=== PATIENT | female | born 1980 | race Caucasian/White ===

== ENCOUNTER 2017-05-24 10:05 | Emergency (ER) | payer OTHER, SELFPAY ==
[2017-05-24 10:06] VITALS: BP 126/79; PULSE 151; RESP 20; TEMP 36.4; O2SAT 98; BMI 64.0
--- NOTE | 2017-05-24 10:24 | HMH.EDNVD ---
ED Disposition Clinical Impression: Gastroenteritis Disposition: Home, Self-Care Condition on Discharge: Good Instructions: DI for Diarrhea and Traveler's Diarrhea -- Child, DI for Nausea -- Adult, DI for Nausea -- Child Additional Instructions: Aggressive fluid hydration, Zofran as needed, follow up with Dr. Schneider in one day for recheck, watch blood sugars closely, go to closest ER if not keeping down fluids. Prescriptions: Ondansetron [Zofran 4mg ODT] 4 mg PO Q8HP PRN #10 tab.rapdis PRN Reason: Nausea Referrals: Isaac Schneider MD [Primary Care Provider] - - Critical Care Critical Care Time: No Attestation: On , the high probability of a clinically significant, sudden or life threatening deterioration of the following system(s) required my full and direct attention, intervention and personal management. The time I documented below is in addition to time spent performing reported procedures but includes the following listed in this critical care notation. Medical Decision Making Vital Signs: 05/24/17 10:06 05/24/17 13:06 Temperature 97.6 F 99.8 F H Temperature Source Temporal Artery Scan Oral Pulse Rate [Right Brachial] 151 H 129 H Respiratory Rate 20 18 Blood Pressure [Right Arm] 126/79 113/62 Blood Pressure Mean [Right Arm] 94 79 Blood Pressure Source [Right Arm] Automatic Cuff Manual Cuff/ Doppler Blood Pressure Position [Right Arm] Sitting Supine 02 Sat by Pulse Oximetry 98 96 Oxygen Delivery Method Room Air Room Air - Lab Data Lab results reviewed: Yes: I reviewed the patient's lab results. Lab Results 05/24/17 10:23: Urine Color Yellow, Urine Appearance Clear, Urine pH 5.5, Ur Specific [place] 1.010, Urine Protein Negative, Urine Glucose (UA) 3+, Urine Ketones 1+, Urine Blood Negative, Urine Nitrate Negative, Urine Bilirubin 1+ A, Urine Urobilinogen 0.2, Ur Leukocyte Esterase Negative, Urine RBC Occasional, Urine WBC Occasional, Ur Squamous Epith Cells 3-5, Urine Bacteria Trace 05/24/17 10:23: Urine HCG, Qual Negative 05/24/17 : WBC 10.1, RBC 5.42 H, Hgb 16.9 H, Hct 49.9 H, MCV 92.1, MCH 31.2, MCHC 33.9, RDW 13.0, Plt Count 229, MPV 9.4, Neut % (Auto) 92.4 H, Lymph % (Auto) 1.7 L, [place] % (Auto) 4.8, Eos % (Auto) 0.8, Baso % (Auto) 0.4, Neut # (Auto) 9.4 H, Lymph # (Auto) 0.2 L, [place] # (Auto) 0.5, Eos # (Auto) 0.1, Baso # (Auto) 0.0, Total Counted 100, Neutrophils % (Manual) 86 H, Band Neutrophils % 6.0, Lymphocytes % (Manual) 3 L, Monocytes % (Manual) 5, Platelet Estimate Normal, RBC Morphology Normal 05/24/17 : Sodium 139, Potassium 4.5, Chloride 100, Carbon Dioxide 20 L, Anion Gap 23.5 H, BUN 20 H, Creatinine 1.01, Estimated Creat Clear 71, Estimated GFR 62, Est GFR ( Amer) 75, Glucose 250 H, Calcium 9.3, Total Bilirubin 1.2 H, AST 23, ALT 37, Alkaline Phosphatase 136 H, Total Protein 8.4 H, Albumin 4.6, Globulin 3.8 H, Albumin/Globulin Ratio 1.2 Result diagrams: 05/24/17 Unknown 05/24/17 Unknown Orders (Tests/Meds): ED MEDICATIONS Generic Name Dose Route Start Last Admin Trade Name Freq PRN Reason Stop Dose Admin Sodium Chloride 1,000 mls @ 999 mls/hr 05/24/17 13:00 05/24/17 12:56 Sod Chloride 0.9% 1000ml Bag IV 05/24/17 14:00 999 mls/hr .Q1H1M KAITLIN Administration Discontinued Medications Generic Name Dose Route Start Last Admin Trade Name Freq PRN Reason Stop Dose Admin Acetaminophen 1,000 mg 05/24/17 13:20 05/24/17 13:22 Tylenol 500mg Tablet PO 05/24/17 13:21 1,000 mg ONCE ONE Administration Sodium Chloride 1,000 mls @ 999 mls/hr 05/24/17 10:30 05/24/17 11:15 Sod Chloride 0.9% 1000ml Bag IV 05/24/17 11:30 999 mls/hr .Q1H1M KAITLIN Administration Ondansetron HCl 4 mg 05/24/17 10:21 05/24/17 11:15 Zofran 4mg/2ml Vial IV 05/24/17 10:22 4 mg ONCE ONE Administration - [place] Inquiry Pt receiving controlled substance: No Medical Decision Making Narrative: No further vomiting. I have called the lab regarding the CMP resu
[2017-05-24 10:28] LABS: Microscopic, Urine URINE MICROSCOPIC (MICROSCOPIC)
--- NOTE | 2017-05-24 10:29 | ED_ITS ---
ED Disposition Clinical Impression: Gastroenteritis Disposition: Home, Self-Care Condition on Discharge: Good Instructions: DI for Diarrhea and Traveler's Diarrhea -- Child, DI for Nausea - - Adult, DI for Nausea -- Child Additional Instructions: Aggressive fluid hydration, Zofran as needed, follow up with Dr. Schneider in one day for recheck, watch blood sugars closely, go to closest ER if not keeping down fluids. Prescriptions: Ondansetron [Zofran 4mg ODT] 4 mg PO Q8HP PRN #10 tab.rapdis PRN Reason: Nausea Referrals: Isaac Schneider MD [Primary Care Provider] - - Critical Care Critical Care Time: No Attestation: On , the high probability of a clinically significant, sudden or life threatening deterioration of the following system(s) required my full and direct attention, intervention and personal management. The time I documented below is in addition to time spent performing reported procedures but includes the following listed in this critical care notation. Medical Decision Making Vital Signs: 05/24/17 10:06 05/24/17 13:06 Temperature 97.6 F 99.8 F H Temperature Source Temporal Artery Scan Oral Pulse Rate [Right Brachial] 151 H 129 H Respiratory Rate 20 18 Blood Pressure [Right Arm] 126/79 113/62 Blood Pressure Mean [Right Arm] 94 79 Blood Pressure Source [Right Arm] Automatic Cuff Manual Cuff/ Doppler Blood Pressure Position [Right Arm] Sitting Supine 02 Sat by Pulse Oximetry 98 96 Oxygen Delivery Method Room Air Room Air - Lab Data Lab results reviewed: Yes: I reviewed the patient's lab results. Lab Results 05/24/17 10:23: Urine Color Yellow, Urine Appearance Clear, Urine pH 5.5, Ur Specific [place] 1.010, Urine Protein Negative, Urine Glucose (UA) 3+, Urine Ketones 1+, Urine Blood Negative, Urine Nitrate Negative, Urine Bilirubin 1+ A, Urine Urobilinogen 0.2, Ur Leukocyte Esterase Negative, Urine RBC Occasional, Urine WBC Occasional, Ur Squamous Epith Cells 3-5, Urine Bacteria Trace 05/24/17 10:23: Urine HCG, Qual Negative 05/24/17 : WBC 10.1, RBC 5.42 H, Hgb 16.9 H, Hct 49.9 H, MCV 92.1, MCH 31.2, MCHC 33.9, RDW 13.0, Plt Count 229, MPV 9.4, Neut % (Auto) 92.4 H, Lymph % (Auto ) 1.7 L, [place] % (Auto) 4.8, Eos % (Auto) 0.8, Baso % (Auto) 0.4, Neut # (Auto) 9.4 H, Lymph # (Auto) 0.2 L, [place] # (Auto) 0.5, Eos # (Auto) 0.1, Baso # (Auto) 0.0, Total Counted 100, Neutrophils % (Manual) 86 H, Band Neutrophils % 6.0, Lymphocytes % (Manual) 3 L, Monocytes % (Manual) 5, Platelet Estimate Normal, RBC Morphology Normal 05/24/17 : Sodium 139, Potassium 4.5, Chloride 100, Carbon Dioxide 20 L, Anion Gap 23.5 H, BUN 20 H, Creatinine 1.01, Estimated Creat Clear 71, Estimated GFR 62, Est GFR ( Amer) 75, Glucose 250 H, Calcium 9.3, Total Bilirubin 1.2 H , AST 23, ALT 37, Alkaline Phosphatase 136 H, Total Protein 8.4 H, Albumin 4.6, Globulin 3.8 H, Albumin/Globulin Ratio 1.2 Result diagrams: 05/24/17 Unknown 05/24/17 Unknown Orders (Tests/Meds): ED MEDICATIONS Generic Name Dose Route Start Last Admin Trade Name Freq PRN Reason Stop Dose Admin Sodium Chloride 1,000 mls @ 999 mls/hr 05/24/17 13:00 05/24/17 12:56 Sod Chloride 0.9% 1000ml Bag IV 05/24/17 14:00 999 mls/hr .Q1H1M KAITLIN Administration Discontinued Medications Generic Name Dose Route Start Last Admin Trade Name Freq PRN Reason Stop Dose Admin Acetaminophen 1,000 mg 05/24/17 13:20 05/24/17 13:22
[2017-05-24 10:31] LABS: Appearance,Urine CLEAR (Clear); Blood, Urine Negative (Negative); Color,Urine YELLOW (Yellow); Glucose,Urine (UA) 3+ (Negative); Ketones,Urine 1+ (Negative); Leukocyte Esterase,Urine Negative (Negative); Nitrate,Urine Negative (Negative); PH,Urine 5.5 (5.0-8.5); Protein,Urine Negative (Negative); Urobilinogen,Urine 0.2 EU/dl (0.2)
[2017-05-24 10:34] LABS: Urine Pregnancy, HCG Qual. Negative (Negative)
[2017-05-24 10:36] LABS: Bilirubin,Urine 1+ (Negative)
[2017-05-24 10:43] LABS: RBC,Urine Occasional #/hpf (0-3); WBC,Urine Occasional #/hpf (0-3)
[2017-05-24 10:44] LABS: Bacteria,Urine Trace /lpf
[2017-05-24 11:56] LABS: Basophils % 0.4 % (0.1-2.0); Eosinophils # 0.1 K/mm3 (0.0-0.4); Eosinophils % 0.8 % (0.1-12.0); Hematocrit 49.9 % (37.0-47.0); Hemoglobin 16.9 g/dL (12.2-16.2); Lymphocytes # 0.2 K/mm3 (0.7-4.5); Lymphocytes % 1.7 K/mm3 (10-50); Mean Corpuscular HGB Conc 33.9 g/dL (31.8-35.4); Mean Corpuscular Hemoglobin 31.2 pg (27.0-31.2); Mean Corpuscular Volume 92.1 fl (81-99); Mean Platelet Volume 9.4 fl (7.4-10.4); Monocytes # 0.5 K/mm3 (0.1-1.0); Monocytes % 4.8 % (1.7-9.3); Neutrophils # 9.4 K/mm3 (1.8-7.8); Neutrophils % 92.4 % (37.0-80.0); Platelet Count 229 K/mm3 (142-424); Red Blood Count 5.42 M/mm3 (4.20-5.40); White Blood Count 10.1 K/mm3 (4.8-10.8)
[2017-05-24 11:58] LABS: MANUAL DIFFERENTIAL MANUAL DIFFERENTIAL (MANUAL DIFF)
[2017-05-24 12:48] LABS: Lymphocytes % 3 % (10-50); Monocytes % 5 % (2-9); Neutrophils % 86 % (42-76); Total Cells Counted 100
[2017-05-24 12:51] LABS: Platelet Estimate Normal; RBC Morphology Normal
[2017-05-24 13:06] VITALS: BP 113/62; PULSE 129; RESP 18; TEMP 37.7; O2SAT 96
[2017-05-24 13:18] LABS: Alanine Aminotransferase 37 U/L (12-78); Albumin Level 4.6 gm/dL (3.4-5.0); Albumin/Globulin Ratio 1.2 (1.1-1.8); Alkaline Phosphatase 136 U/L (46-116); Anion Gap 23.5 mEq/L (5-15); Aspartate Amino Transferase 23 U/L (15-37); Bilirubin,Total 1.2 mg/dL (0.2-1.0); Blood Urea Nitrogen 20 mg/dL (7-18); Calcium 9.3 mg/dL (8.5-10.1); Carbon Dioxide 20 mmol/L (21.0-32.0); Chloride 100 mmol/L (98-107); Creatinine Clearance Estimated 71 mL/min (0-300); Creatinine,Serum 1.01 mg/dL (0.55-1.02); Estimated Glomerular Filt Rate 62 ml/min (>60); GFR (African American) 75 ML/MIN (>60); Globulin 3.8 gm/dl (1.3-3.2); Glucose 250 mg/dL (74-106); Potassium 4.5 mmoL/L (3.5-5.1); Sodium 139 mmol/L (136-145); Total Protein,Serum 8.4 gm/dL (6.4-8.2)
[2017-05-24 14:19] VITALS: BP 120/62; PULSE 115; RESP 18; TEMP 37.3; O2SAT 96
== END 2017-05-24 14:19 | disposition home or self-care (01) ==
PROVIDERS: Emergency Provider Emergency Medicine; PCP Family Medicine
DX: K52.9 Noninfective gastroenteritis and colitis, unspecified (principal); E11.65 Type 2 diabetes mellitus with hyperglycemia; Z79.84 Long term (current) use of oral hypoglycemic drugs; Z87.891 Personal history of nicotine dependence
CPT/HCPCS: 80053; 81001; 81025; 85007; 85025; 96365; 96366; 96374; 96375; 99283; J2405

== ENCOUNTER → 2017-10-11 12:04 | Outpatient (CLI) | payer OTHER, SELFPAY ==
--- NOTE | 2017-10-11 12:09 | XR_ITS ---
XR finger LT min 2V CLINICAL INDICATION: ITS.REASON: LEFT THUMB PAIN ORDERING PHYSICIAN: RITO Sauceda PATIENT AGE: 36 years Comparison: None FINDINGS: There is a small calcific density at the major aspect of the interphalangeal joint of the thumb and could be due to an accessory center of ossification or an old avulsion injury. Joint spaces are well-preserved. No acute fracture evident. IMPRESSION: Old avulsion fracture versus accessory center of ossification at the interphalangeal joint anteriorly otherwise negative
== END ==
PROVIDERS: PCP Family Medicine; Visit Provider Physician Assistant
DX: M79.645 Pain in left finger(s) (principal)
CPT/HCPCS: 73140

== ENCOUNTER → 2018-04-10 08:07 | Outpatient (POV) | payer OTHER, SELFPAY | PROVIDERS: Visit Provider Dermatology | DX: Z00.00 Encounter for general adult medical examination without abnormal findings (principal) ==

== ENCOUNTER → 2020-01-03 10:17 | Outpatient (CLI) | payer OTHER, SELFPAY ==
--- NOTE | 2020-01-03 10:22 | MM_ITS ---
PROCEDURE: MM DIG SCREENING MAMM BI W/CAD Digital Breast Tomosynthesis Included CLINICAL INDICATION: SCREENING There is no personal or family history of breast cancer. There has been a previous biopsy left breast for benign disease. COMPARISON: MG DMSB DIGITAL MAMM-SCREEN BILATERAL from 12/21/2011 TECHNIQUE: Standard CC and MLO images and 3D Tomosynthesis was obtained. R2 CAD reviewed. FINDINGS: Moderate diffuse fibroglandular densities are seen in both breasts. There is a stable small nodular density upper inner quadrant left breast with a biopsy clip abutting its border in this likely is small fibroadenoma which has been biopsied previously. There is no new or suspicious lesion in either breast and no suspicious microcalcifications. IMPRESSION: Moderate breast density with no suspicious lesions seen BI-RAD Category: 2 Benign Finding(s) FOLLOW-UP: 1YR 1 Year Follow-up (A letter has been sent to the patient regarding results of the study.) Dictated by: Dr. Yusef Harris MD 01/03/2020 17:33 Dr. Yusef Harris MD in [place] 01/03/2020 17:33
== END ==
PROVIDERS: PCP Family Medicine; Visit Provider Family Medicine
DX: Z12.31 Encounter for screening mammogram for malignant neoplasm of breast (principal)
CPT/HCPCS: 77063; 77067

== ENCOUNTER → 2020-04-21 11:10 | Outpatient (CLI) | payer OTHER, SELFPAY ==
--- NOTE | 2020-04-21 | XR_ITS ---
PROCEDURE: XR CHEST 2V CLINICAL HISTORY: COUGH COMPARISON: No exams were available for comparison FINDINGS: The cardiomediastinal silhouette and pulmonary vascularity are within normal limits. The lungs are clear without infiltrates, suspicious nodules, or pleural effusions. No acute bony abnormalities. IMPRESSION: No acute findings. Dictated by: Teo Billings MD 04/21/2020 17:17 Teo Billings MD in [place] 04/21/2020 17:17
== END ==
PROVIDERS: PCP Family Medicine; Visit Provider Family Medicine
DX: R05 Cough (principal)
CPT/HCPCS: 71046

== ENCOUNTER → 2020-04-24 11:50 | Outpatient (CLI) | payer OTHER, SELFPAY | PROVIDERS: PCP Family Medicine; Visit Provider Family Medicine | DX: R05 Cough (principal) | CPT/HCPCS: 94060 ==

== ENCOUNTER → 2020-11-18 08:12 | Outpatient (CLI) | payer BC, SELFPAY ==
--- NOTE | 2020-11-18 08:24 | US_ITS ---
PROCEDURE: US ABDOMEN LIMITED CLINICAL INDICATION: RUQ PAIN,NAUSEA COMPARISON: No exams were available for comparison FINDINGS: PANCREAS: Pancreas is not well delineated due to overlying bowel gas. CT or MRI without and with contrast with pancreatic protocol may provide further evaluation if clinically desired.. LIVER: Diffuse increased echogenicity of the liver with poor through transmission of sound consistent with hepatic steatosis. No focal liver lesion demonstrated. There is appropriate direction of blood flow within non dilated portal vein. RIGHT KIDNEY: Unremarkable. Normal size and echogenicity. No hydronephrosis GALLBLADDER: No gallstones, gallbladder wall thickening, pericholecystic fluid, or biliary dilatation. IMPRESSION: Fatty liver. No gallstones apparent. Pancreas poorly demonstrated Dictated by: Teo Billings MD 11/18/2020 11:32 Teo Billings MD in [place] 11/18/2020 11:32
== END ==
PROVIDERS: PCP Family Medicine; Visit Provider Family Medicine
DX: R10.11 Right upper quadrant pain (principal)
CPT/HCPCS: 76705

== ENCOUNTER → 2020-11-23 10:13 | Outpatient (CLI) | payer BC, SELFPAY ==
--- NOTE | 2020-11-23 10:20 | NM_ITS ---
PROCEDURE: NM HEPATOBILIARY W PHARM CLINICAL INDICATION: RUQ ABD PAIN COMPARISON: US US ABDOMEN LIMITED from 11/18/2020 TECHNIQUE: DOSE: 7.7 mCi technetium Choletec. Fatty meal/ensure given for gallbladder EF FINDINGS: Homogeneous activity is present within the hepatic parenchyma. Activity is present in the gallbladder by 10 minutes. Activity is present in the small bowel by 5 minutes. No reflux of activity within the stomach. The gallbladder ejection fraction is calculated to be 86 percent. CCK-The patient did not report pain or other symptoms fatty meal ingestion. IMPRESSION: Unremarkable hepatobiliary scan. No evidence of common or cystic duct obstruction with normal gallbladder ejection fraction Dictated by: Teo Billings MD 11/23/2020 14:12 Teo Billings MD in [place] 11/23/2020 14:12
--- NOTE | 2020-11-23 11:04 | HMH.ITSHM ---
Current Home Medications as stated by this patient Linda Farias or patient care representative. []ONDANSETRON INSULIN
== END ==
PROVIDERS: PCP Family Medicine; Visit Provider Family Medicine
DX: R10.11 Right upper quadrant pain (principal)
CPT/HCPCS: 78227; A9537

== ENCOUNTER → 2021-02-15 17:49 | Outpatient (CLI) | payer BC, SELFPAY ==
[2021-02-15 19:16] LABS: Microalbumin/Creatinine Ratio 34.6
[2021-02-15 19:17] LABS: Creatinine,Urine Random 52 mg/dL (Not Estab.)
[2021-02-15 19:22] LABS: Alanine Aminotransferase 36 U/L (12-78); Albumin/Globulin Ratio 1.2 (1.1-1.8); Alkaline Phosphatase 169 U/L (38-126); Anion Gap 13.5 mEq/L (5-15); Aspartate Amino Transferase 39 U/L (14-36); Bilirubin,Total 0.5 mg/dl (0.2-1.3); Blood Urea Nitrogen 8 mg/dl (7-17); Calcium 9.3 mg/dl (8.4-10.2); Carbon Dioxide 25 mmol/L (22.0-30.0); Chloride 101 mmol/L (98-107); Cholesterol 257 mg/dl (140-200); Estimated Glomerular Filt Rate 176 ml/min (>60); GFR (African American) 213 ML/MIN (>60); Globulin 3.3 g/dL (1.3-3.2); Glucose 355 mg/dl (74-100); HDL Cholesterol 32 mg/dl (40-60); Potassium 4.5 mmoL/L (3.5-5.1); Sodium 135 mmol/L (136-145); Total Protein,Serum 7.3 g/dl (6.3-8.2)
[2021-02-15 19:32] LABS: Direct LDL Cholesterol 83.16 mg/dL (100-129)
[2021-02-15 19:36] LABS: Basophils # 0.1 K/mm3 (0-0.2); Basophils % 0.8 % (0.1-2.0); Eosinophils # 0.3 K/mm3 (0.0-0.4); Eosinophils % 2.7 % (0.1-12.0); Hematocrit 46.1 % (37.0-47.0); Hemoglobin 15.5 g/dL (12.2-16.2); Lymphocytes # 2.5 K/mm3 (0.7-4.5); Mean Corpuscular HGB Conc 33.7 g/dL (31.8-35.4); Mean Corpuscular Hemoglobin 32.4 pg (27.0-31.2); Mean Corpuscular Volume 96.2 fl (81-99); Mean Platelet Volume 10.5 fl (7.4-10.4); Monocytes # 0.6 K/mm3 (0.1-1.0); Neutrophils # 8.7 K/mm3 (1.8-7.8); Neutrophils % 71.4 % (37.0-80.0); Platelet Count 239 K/mm3 (142-424); Red Blood Count 4.79 M/mm3 (4.20-5.40); Red Cell Distribution Width 13.5 % (11.5-17.5); Triglycerides 1257 mg/dl (30-150); White Blood Count 12.2 K/mm3 (4.8-10.8)
[2021-02-15 19:40] LABS: T4 (Thyroxine) 7.6 ug/dl (5.53-11.0)
== END ==
PROVIDERS: Visit Provider Nurse Practitioner Family
DX: E11.9 Type 2 diabetes mellitus without complications (principal); Z79.4 Long term (current) use of insulin
CPT/HCPCS: 80053; 80061; 82043; 82570; 83036; 84436; 84443; 85025

== ENCOUNTER → 2021-03-10 13:33 | Outpatient (CLI) | payer BC, SELFPAY ==
[2021-03-12 11:27] LABS: C-Peptide 4.4 ng/mL (1.1-4.4)
== END ==
PROVIDERS: Visit Provider Nurse Practitioner Family
DX: E11.9 Type 2 diabetes mellitus without complications (principal); Z79.4 Long term (current) use of insulin
CPT/HCPCS: 84681

== ENCOUNTER → 2021-04-13 07:58 | Outpatient (POV) | payer BC, SELFPAY | PROVIDERS: Visit Provider Dermatology | DX: Z00.00 Encounter for general adult medical examination without abnormal findings (principal) ==

== ENCOUNTER → 2021-06-24 11:34 | Outpatient (CLI) | payer BC, SELFPAY ==
[2021-06-24 11:56] LABS: Microscopic, Urine URINE MICROSCOPIC (MICROSCOPIC)
[2021-06-24 13:00] LABS: Basophils # 0.1 K/mm3 (0-0.2); Basophils % 0.8 % (0.1-2.0); Eosinophils # 0.2 K/mm3 (0.0-0.4); Eosinophils % 1.7 % (0.1-12.0); Hematocrit 44.1 % (37.0-47.0); Hemoglobin 15.3 g/dL (12.2-16.2); Lymphocytes % 22.4 % (10-50); Mean Corpuscular HGB Conc 34.7 g/dL (31.8-35.4); Mean Platelet Volume 10.1 fl (7.4-10.4); Monocytes # 0.7 K/mm3 (0.1-1.0); Monocytes % 4.9 % (1.7-9.3); Neutrophils # 9.5 K/mm3 (1.8-7.8); Neutrophils % 70.1 % (37.0-80.0); Platelet Count 269 K/mm3 (142-424); Red Blood Count 4.79 M/mm3 (4.20-5.40); Red Cell Distribution Width 13.5 % (11.5-17.5); White Blood Count 13.5 K/mm3 (4.8-10.8)
[2021-06-24 13:52] LABS: 25-OH Vitamin D, Total 46.3 ng/mL (30-100)
[2021-06-24 14:20] LABS: Appearance,Urine CLEAR (Clear); Bilirubin,Urine Negative (Negative); Blood, Urine Negative (Negative); Color,Urine YELLOW (Yellow); Glucose,Urine (UA) Negative (Negative); Ketones,Urine Negative (Negative); Leukocyte Esterase,Urine Negative (Negative); Nitrate,Urine Negative (Negative); PH,Urine 5.5 (5.0-8.5); Protein,Urine Negative (Negative); Specific Gravity, Urine >= 1.030 (1.005-1.030); Urobilinogen,Urine 0.2 EU/dl (0.2)
[2021-06-24 14:43] LABS: Total Protein,Urine Random < 5.0 mg/dL (0.0-12.0)
[2021-06-24 14:45] LABS: Creatinine,Urine Random 164 mg/dL (Not Estab.)
[2021-06-24 14:51] LABS: Microalbumin/Creatinine Ratio 28.4
[2021-06-24 15:00] LABS: Bacteria,Urine Trace /lpf; WBC,Urine Occasional #/hpf (0-3); Yeast,Urine Occasional /lpf
[2021-06-24 16:08] LABS: Albumin Level 5.5 g/dl (3.5-5.0); Anion Gap 14.5 mEq/L (5-15); Blood Urea Nitrogen 14 mg/dl (7-17); Calcium 10.2 mg/dl (8.4-10.2); Carbon Dioxide 27 mmol/L (22.0-30.0); Chloride 100 mmol/L (98-107); Estimated Glomerular Filt Rate 136 ml/min (>60); GFR (African American) 165 ML/MIN (>60); Glucose 165 mg/dl (74-100); Phosphorous 4.7 mg/dl (2.5-4.5); Potassium 4.5 mmoL/L (3.5-5.1); Sodium 137 mmol/L (136-145)
[2021-06-24 16:19] LABS: Intact Parathyroid Hormone 12.4 pg/mL (7.5-53.5)
== END ==
PROVIDERS: PCP Nurse Practitioner Family; Visit Provider Internal Medicine Nephrology
DX: R80.9 Proteinuria, unspecified (principal); E55.9 Vitamin D deficiency, unspecified
CPT/HCPCS: 36415; 80069; 81001; 82043; 82306; 82570; 83970; 84155; 85025

== ENCOUNTER → 2021-06-28 13:32 | Outpatient (POV) | payer BC, SELFPAY | PROVIDERS: Visit Provider Internal Medicine Nephrology | DX: Z00.00 Encounter for general adult medical examination without abnormal findings (principal) ==

== ENCOUNTER 2021-09-06 10:42 | Emergency (ER) | payer BC, SELFPAY ==
[2021-09-06 10:42] VITALS: BP 122/84; PULSE 80; RESP 19; TEMP 36.9; O2SAT 99; BMI 28.1
[2021-09-06 11:33] LABS: UTC Influenza A Antigen Negative (Negative)
[2021-09-06 11:34] LABS: UTC Influenza B Antigen Negative (Negative)
--- NOTE | 2021-09-06 12:03 | HMH.EDUTC ---
[place] Disposition Clinical Impression: URI (upper respiratory infection) Qualifiers: URI type: unspecified URI Qualified Code(s): J06.9 - Acute upper respiratory infection, unspecified Disposition: Home, Self-Care Condition on Discharge: Good Instructions: Sore Throat, Sinusitis Additional Instructions: *Monitor Temp, Over the counter Motrin or Tylenol as directed/as needed Tylenol every 4 hours and Motrin every 6 hours (as long as your family doctor has told you that you can take it) for fever or pain. and straight to ER if unable to lower temp less than 101.0 after medication given *Warm salt water gargles may help to soothe the throat *Throat Lozenges *Warm fluids like tea with honey may help to soothe the throat *Sleep elevated *Humidifier/Vaporizer *Flonase 2 sprays in each nostril daily but be aware that it may take 2-3 days before you notice improvement Your throat swab was sent for culture. Those results are typically sent to your primary care. Be sure to follow up in 2-3 days with your family doctor/primary care physician if no improvement so they can review those result and treat if necessary. If you don?t have a primary care doctor, I recommend you get one but in the mean time, you will have to return to a walk in clinic Follow up IMMEDIATELY for new or worsening symptoms or no Noticeable improvement over the next 48-72 hours. 911 for difficulty breathing or swallowing Prescriptions: Fluticasone Propionate [Flonase 50mcg nasal spray 16gm] 1 spr NS DAILY #1 each Transmission Status: Sent to [facility] Azithromycin [Z-Marquis 250mg Tab] 250 mg PO DIRECTED #6 tab Transmission Status: Pending to [facility] Referrals: Cory Whelan APRN [Primary Care Provider] - As needed Time of Disposition: 12:12 Medical Decision Making - [place] Inquiry Pt receiving controlled substance: No [place] was queried for this patient: No Vital Signs: 09/06/21 10:42 Temperature 98.5 F Temperature Source Oral Pulse Rate [Right Radial] 80 Respiratory Rate 19 Blood Pressure [Right Arm] 122/84 Blood Pressure Mean [Right Arm] 96 Blood Pressure Source [Right Arm] Automatic Cuff Blood Pressure Position [Right Arm] Sitting 02 Sat by Pulse Oximetry 99 Oxygen Delivery Method Room Air - Lab Data Lab results reviewed: Yes: I reviewed the patient's lab results. Lab Results 09/06/21 11:25: Influenza Type A Ag Negative, Influenza Type B Ag Negative [place] HPI - General Stated complaint: sore throat, h/a, congestion Time Seen by Provider: 09/06/21 12:03 Mode of Arrival: Ambulatory Source of Information: Patient Limitations: No Limitations Description of Symptoms (Recalled from Triage Doc. by RN): Pt stated that since yesterday she has had body aches, sinus pressure, cough, and chills. HEENT Symptoms (Recalled from RN notes): Yes Resp Symptoms (Recalled from RN notes): No Skin Symptoms (Recalled from RN notes): No MS Symptoms (Recalled from RN notes): No Functional Status (Recalled from RN notes): n/a - History of Present Illness Provider Complaint: Patient states that she has been having sinus pressure, sore scratchy throat cough and chest congestion for about a week but States that she has continued to feel worse over the last couple days and symptoms worsened yesterday so today when she was still not feeling well she came in to get checked out - Related Data Home Medications Medication Instructions Recorded Confirmed insulin glargine U-300 conc 300 120 unit SQ DAILY ml 04/14/21 05/12/21 unit/mL (3 mL) subcutaneous pen Previous Rx's Medication Instructions Recorded flash glucose scanning reader See Rx Instructions .ROUTE #1 each 03/10/21 aspirin 81 mg tablet,delayed 81 mg PO DAILY #30 tab 04/14/21 release duloxetine 60 mg capsule,delayed 60 mg PO DAILY #90 cap 04/14/21 release lisinopril 5 mg tablet 5 mg PO DAILY #30 tab 04/14/21 semaglutide 0.25 mg SQ WEEKLY #1.5 ml 05/12/21
[2021-09-06 12:27] VITALS: BP 122/84; PULSE 80; RESP 19; TEMP 36.9; O2SAT 99
== END 2021-09-06 12:27 | disposition home or self-care (01) ==
PROVIDERS: Emergency Provider Nurse Practitioner; PCP Nurse Practitioner Family
DX: J06.9 Acute upper respiratory infection, unspecified (principal); E11.9 Type 2 diabetes mellitus without complications; Z87.891 Personal history of nicotine dependence
CPT/HCPCS: 87804; 99212; G0463

== ENCOUNTER → 2022-03-17 11:21 | Outpatient (CLI) | payer BC, SELFPAY ==
[2022-03-17 14:52] LABS: Basophils # 0.1 K/mm3 (0-0.2); Basophils % 1.1 % (0.1-2.0); Eosinophils # 0.2 K/mm3 (0.0-0.4); Eosinophils % 1.9 % (0.1-12.0); Hematocrit 47.9 % (37.0-47.0); Hemoglobin 16.2 g/dL (12.2-16.2); Lymphocytes # 2.4 K/mm3 (0.7-4.5); Lymphocytes % 19.6 % (10-50); Mean Corpuscular HGB Conc 33.8 g/dL (31.8-35.4); Mean Corpuscular Hemoglobin 32.1 pg (27.0-31.2); Mean Platelet Volume 10.3 fl (7.4-10.4); Monocytes # 0.6 K/mm3 (0.1-1.0); Monocytes % 4.7 % (1.7-9.3); Neutrophils # 8.7 K/mm3 (1.8-7.8); Neutrophils % 72.7 % (37.0-80.0); Platelet Count 249 K/mm3 (142-424); Red Blood Count 5.04 M/mm3 (4.20-5.40); Red Cell Distribution Width 13.5 % (11.5-17.5)
[2022-03-17 14:56] LABS: Microalbumin/Creatinine Ratio 44.7
[2022-03-17 14:58] LABS: Creatinine,Urine Random 34 mg/dL (Not Estab.)
[2022-03-17 15:19] LABS: Hemoglobin A1C 13.2 % (4.0-6.0)
[2022-03-17 16:08] LABS: Chloride 90 mmol/L (98-107); Potassium 5.1 mmoL/L (3.5-5.1); Sodium 133 mmol/L (136-145)
[2022-03-17 16:09] LABS: Alanine Aminotransferase 26 U/L (12-78); Albumin Level 4.9 g/dl (3.5-5.0); Albumin/Globulin Ratio 1.7 (1.1-1.8); Alkaline Phosphatase 186 U/L (38-126); Anion Gap 22.1 mEq/L (5-15); Aspartate Amino Transferase 28 U/L (14-36); Bilirubin,Total 0.6 mg/dl (0.2-1.3); Blood Urea Nitrogen 10 mg/dl (7-17); Calcium 10.2 mg/dl (8.4-10.2); Carbon Dioxide 26 mmol/L (22.0-30.0); Chol/HDL Ratio 7.4 (1-3.5); Cholesterol 287 mg/dl (140-200); Estimated Glomerular Filt Rate 175 ml/min (>60); GFR (African American) 212 ML/MIN (>60); Globulin 2.9 g/dL (1.3-3.2); Glucose 371 mg/dl (74-100); HDL Cholesterol 39 mg/dl (40-60); Total Protein,Serum 7.8 g/dl (6.3-8.2)
[2022-03-17 16:25] LABS: 25-OH Vitamin D, Total 37.5 ng/mL (30-100)
[2022-03-17 16:26] LABS: Direct LDL Cholesterol 91.43 mg/dL (100-129)
[2022-03-17 16:30] LABS: Triglycerides 756 mg/dl (30-150)
[2022-03-17 16:40] LABS: Thyroid Stimulating Hormone 0.52 uIU/mL (0.465-4.68)
== END ==
PROVIDERS: PCP Physician Assistant; Visit Provider Physician Assistant
DX: E11.9 Type 2 diabetes mellitus without complications (principal); Z79.4 Long term (current) use of insulin
CPT/HCPCS: 80053; 80061; 82043; 82306; 82570; 83036; 84443; 85025

== ENCOUNTER → 2022-05-12 14:38 | Outpatient (CLI) | payer BC, SELFPAY ==
[2022-05-12 16:00] VITALS: BMI 28.3
== END ==
PROVIDERS: PCP Physician Assistant; Visit Provider Physician Assistant
DX: Z71.3 Dietary counseling and surveillance (principal); E11.9 Type 2 diabetes mellitus without complications
CPT/HCPCS: 97802

== ENCOUNTER → 2022-05-25 10:58 | Outpatient (CLI) | payer BC, SELFPAY ==
--- NOTE | 2022-05-25 10:58 | MM_ITS ---
PROCEDURE INFORMATION: Exam: MG Bilateral Screening 3D Mammography Exam date and time: 05/25/2022 10:52 AM Age: 41 years old Clinical indication: Screening. History of benign left needle biopsy. TECHNIQUE: Imaging protocol: Bilateral Screening tomosynthesis and 2D mammography including computer-aided detection (CAD) when performed. COMPARISON: 1. MG MM DIG SCREENING MAMM BI W/CAD 01/03/2020 10:23 AM 2. MG DMSB DIGITAL MAMM-SCREEN BILATERAL 12/21/2011 2:55 PM FINDINGS: MAMMOGRAPHY: Breast composition: The breasts are heterogeneously dense, which may obscure small masses. Mass: Stable sub cm mass in the inner left breast with related biopsy clip. Architectural distortion: None. Calcifications: Possible grouping of calcifications in the left upper outer quadrant posterior 3rd. Asymmetric density: No developing asymmetry. Skin thickening: None. Axillary adenopathy: None. IMPRESSION: Patient to be recalled for left diagnostic magnification views in XCCL and true lateral for further evaluation of possible left breast calcifications. ASSESSMENT: BI-RADS Category 0: Incomplete- Need Additional Imaging Evaluation and/or Prior Mammograms for Comparison
--- NOTE | 2022-05-25 14:27 | XR_ITS ---
FINAL REPORT CLINICAL HISTORY: b/l foot pain FINDINGS: LEFT FOOT Three weight-bearing views of the left foot demonstrate no acute fracture or dislocation. The joint spaces are preserved. The soft tissues are unremarkable. IMPRESSION: No acute bony abnormality. Reviewed, Interpreted and Dictated by Hood Handy III, MD Transcribed by Shea Barr Authenticated and . [facility]
--- NOTE | 2022-05-25 14:27 | XR_ITS ---
FINAL REPORT CLINICAL HISTORY: b/l foot pain FINDINGS: RIGHT FOOT Three weight-bearing views of the right foot demonstrate no acute fracture or dislocation. There are mild degenerative changes of the 1st MTP joint. The soft tissues are unremarkable. IMPRESSION: No acute bony abnormality. Reviewed, Interpreted and Dictated by Hood Handy III, MD Transcribed by Shea Barr Authenticated and . [facility]
== END ==
PROVIDERS: PCP Physician Assistant; Referring Provider Nurse Practitioner Family; Visit Provider Physician Assistant
DX: Z12.31 Encounter for screening mammogram for malignant neoplasm of breast (principal); M79.671 Pain in right foot; M79.672 Pain in left foot
CPT/HCPCS: 73630; 77063; 77067

== ENCOUNTER → 2022-06-03 14:27 | Outpatient (CLI) | payer BC, SELFPAY ==
--- NOTE | 2022-06-03 14:31 | MM_ITS ---
PROCEDURE INFORMATION: Exam: MG Left Diagnostic Breast Tomosynthesis Exam date and time: 06/03/2022 2:42 PM Age: 41 years old Clinical indication: Patient recalled on the basis of a screening mammogram for further evaluation; Left breast; calcifications TECHNIQUE: Imaging protocol: Left Diagnostic tomosynthesis and 2D mammography including computer-aided detection (CAD) when performed. Unilateral or bilateral exam. COMPARISON: 1. MG MM DIG SCREENING MAMM BI W/CAD 05/25/2022 10:52 AM 2. MG MM DIG SCREENING MAMM BI W/CAD 01/03/2020 10:23 AM FINDINGS: MAMMOGRAPHY: Digital diagnostic magnification views of the posterior left upper outer quadrant demonstrate few punctate calcifications without tight clustering or significant pleomorphism IMPRESSION: No mammographic evidence of malignancy. Annual bilateral mammographic screening is recommended unless otherwise clinically indicated. ASSESSMENT: BI-RADS Category 2: Benign
== END ==
PROVIDERS: PCP Physician Assistant; Visit Provider Physician Assistant
DX: R92.8 Other abnormal and inconclusive findings on diagnostic imaging of breast (principal)
CPT/HCPCS: 77061; 77065; G0279

== ENCOUNTER → 2022-08-09 11:35 | Outpatient (CLI) | payer BC, SELFPAY ==
[2022-08-09 14:23] LABS: Hemoglobin A1C 7.2 % (4.0-6.0)
== END ==
PROVIDERS: PCP Nurse Practitioner Family; Visit Provider Nurse Practitioner Family
DX: E11.9 Type 2 diabetes mellitus without complications (principal); Z79.4 Long term (current) use of insulin
CPT/HCPCS: 83036

== ENCOUNTER → 2023-04-03 16:08 | Outpatient (CLI) | payer BC, SELFPAY ==
[2023-04-03 16:10] LABS: Basophils # 0.1 K/mm3 (0-0.2); Basophils % 0.5 % (0.1-2.0); Eosinophils # 0.2 K/mm3 (0.0-0.4); Eosinophils % 1.8 % (0.1-12.0); Hematocrit 41.9 % (37.0-47.0); Hemoglobin 14.6 g/dL (12.2-16.2); Lymphocytes # 2.4 K/mm3 (0.7-4.5); Lymphocytes % 22.7 % (10-50); Mean Corpuscular HGB Conc 34.8 g/dL (31.8-35.4); Mean Corpuscular Hemoglobin 31.9 pg (27.0-31.2); Mean Corpuscular Volume 91.6 fl (81-99); Mean Platelet Volume 10.9 fl (7.4-10.4); Monocytes # 0.5 K/mm3 (0.1-1.0); Monocytes % 4.8 % (1.7-9.3); Neutrophils # 7.4 K/mm3 (1.8-7.8); Neutrophils % 70.1 % (37.0-80.0); Platelet Count 248 K/mm3 (142-424); Red Blood Count 4.57 M/mm3 (4.20-5.40); Red Cell Distribution Width 13.6 % (11.5-17.5); White Blood Count 10.5 K/mm3 (4.8-10.8)
[2023-04-03 16:44] LABS: Alanine Aminotransferase 87 U/L (12-78); Albumin Level 4.5 g/dl (3.5-5.0); Albumin/Globulin Ratio 1.4 (1.1-1.8); Alkaline Phosphatase 160 U/L (38-126); Anion Gap 16.6 mEq/L (5-15); Aspartate Amino Transferase 64 U/L (14-36); Bilirubin,Total 0.5 mg/dl (0.2-1.3); Blood Urea Nitrogen 14 mg/dl (7-17); Calcium 9.5 mg/dl (8.4-10.2); Carbon Dioxide 25 mmol/L (22.0-30.0); Chloride 100 mmol/L (98-107); Chol/HDL Ratio 7.4 (1-3.5); Cholesterol 237 mg/dl (140-200); Estimated Glomerular Filt Rate 109 ml/min (>60); GFR (African American) 132 ML/MIN (>60); Globulin 3.3 g/dL (1.3-3.2); Glucose 171 mg/dl (74-100); HDL Cholesterol 32 mg/dl (40-60); Potassium 4.6 mmoL/L (3.5-5.1); Sodium 137 mmol/L (136-145); Total Protein,Serum 7.8 g/dl (6.3-8.2)
[2023-04-03 16:55] LABS: Direct LDL Cholesterol 76.27 mg/dL (100-129)
[2023-04-03 16:57] LABS: 25-OH Vitamin D, Total 20.1 ng/mL (30-100)
[2023-04-03 17:04] LABS: Triglycerides 686 mg/dl (30-150)
[2023-04-03 17:15] LABS: Thyroid Stimulating Hormone 0.61 uIU/mL (0.465-4.68)
[2023-04-03 17:33] LABS: Microalbumin/Creatinine Ratio 6.4
[2023-04-03 17:34] LABS: Vitamin B12 323 pg/mL (239-931)
[2023-04-03 17:36] LABS: Creatinine,Urine Random 151 mg/dL (Not Estab.)
[2023-04-05 08:18] LABS: FSH 33.7 mIU/mL (.); LH 38.4 mIU/mL (.); Testosterone,Total 34 ng/dL (4-50)
[2023-04-05 09:29] LABS: Progesterone <0.1 ng/mL (.)
[2023-04-05 12:14] LABS: Estradiol 37.3 pg/mL (.)
[2023-04-07 18:22] LABS: Estrogen 63 pg/mL (.)
[2023-04-10 21:50] LABS: Anti Mullerian Hormone (AMH) 0.022
== END ==
PROVIDERS: PCP Physician Assistant; Visit Provider Physician Assistant
DX: E11.9 Type 2 diabetes mellitus without complications (principal); E55.9 Vitamin D deficiency, unspecified; Z79.84 Long term (current) use of oral hypoglycemic drugs; Z79.85 Long-term (current) use of injectable non-insulin antidiabetic drugs; Z68.30 Body mass index [BMI] 30.0-30.9, adult
CPT/HCPCS: 80053; 80061; 82043; 82306; 82397; 82570; 82607; 82670; 82672; 83001; 83002; 83036; 84144; 84403; 84443; 85025

== ENCOUNTER 2023-08-30 16:05 | Outpatient (CLI) | payer BC, SELFPAY ==
[2023-08-30 18:17] LABS: Basophils # 0.1 K/mm3 (0-0.2); Basophils % 0.5 % (0.1-2.0); Eosinophils # 0.2 K/mm3 (0.0-0.4); Eosinophils % 1.3 % (0.1-12.0); Hematocrit 37.6 % (37.0-47.0); Hemoglobin 12.4 g/dL (12.2-16.2); Lymphocytes # 2.3 K/mm3 (0.7-4.5); Lymphocytes % 19.8 % (10-50); Mean Corpuscular Hemoglobin 31.3 pg (27.0-31.2); Mean Corpuscular Volume 94.8 fl (81-99); Mean Platelet Volume 10.1 fl (7.4-10.4); Monocytes # 0.6 K/mm3 (0.1-1.0); Monocytes % 4.8 % (1.7-9.3); Neutrophils # 8.4 K/mm3 (1.8-7.8); Neutrophils % 73.5 % (37.0-80.0); Platelet Count 254 K/mm3 (142-424); Red Blood Count 3.96 M/mm3 (4.20-5.40); Red Cell Distribution Width 13.9 % (11.5-17.5); White Blood Count 11.5 K/mm3 (4.8-10.8)
[2023-08-30 18:36] LABS: Alanine Aminotransferase 40 U/L (12-78); Albumin Level 3.9 g/dl (3.5-5.0); Albumin/Globulin Ratio 1.6 (1.1-1.8); Alkaline Phosphatase 142 U/L (38-126); Anion Gap 13.1 mEq/L (5-15); Aspartate Amino Transferase 31 U/L (14-36); Bilirubin,Total 0.4 mg/dl (0.2-1.3); Blood Urea Nitrogen 8 mg/dl (7-17); Carbon Dioxide 25 mmol/L (22.0-30.0); Chloride 104 mmol/L (98-107); Cholesterol 124 mg/dl (140-200); Estimated Glomerular Filt Rate 109 ml/min (>60); GFR (African American) 132 ML/MIN (>60); Globulin 2.5 g/dL (1.3-3.2); Glucose 261 mg/dl (74-100); HDL Cholesterol 31 mg/dl (40-60); Potassium 4.1 mmoL/L (3.5-5.1); Sodium 138 mmol/L (136-145); Total Protein,Serum 6.4 g/dl (6.3-8.2); Triglycerides 223 mg/dl (30-150); VLDL Cholesterol 45 mg/dL (0-40)
[2023-08-30 18:54] LABS: Direct LDL Cholesterol 59.97 mg/dL (100-129)
[2023-08-30 18:57] LABS: 25-OH Vitamin D, Total 48.3 ng/mL (30-100)
[2023-08-30 19:08] LABS: Thyroid Stimulating Hormone 0.52 uIU/mL (0.465-4.68)
[2023-08-30 19:28] LABS: Vitamin B12 241 pg/mL (239-931)
[2023-08-30 20:50] LABS: Ferritin 64.3 ng/ml (6.24-137)
== END 2023-08-30 23:59 | disposition home or self-care (01) ==
LOC: LAB.DROPOF 08-31 16:06
PROVIDERS: PCP Physician Assistant; Visit Provider Physician Assistant
DX: E78.5 Hyperlipidemia, unspecified (principal); E11.40 Type 2 diabetes mellitus with diabetic neuropathy, unspecified; E66.9 Obesity, unspecified; Z68.30 Body mass index [BMI] 30.0-30.9, adult; Z79.899 Other long term (current) drug therapy; Z79.4 Long term (current) use of insulin
CPT/HCPCS: 80053; 80061; 82306; 82607; 82728; 82746; 83036; 84443; 85025

== ENCOUNTER 2024-03-07 08:14 | Outpatient (CLI) | payer BC, SELFPAY ==
--- NOTE | 2024-03-07 08:20 | MM_ITS ---
PROCEDURE INFORMATION: Exam: MG Bilateral Screening 3D Mammography Exam date and time: 03/07/2024 8:28 AM Age: 43 years old Clinical indication: Screening examination TECHNIQUE: Imaging protocol: Bilateral Screening tomosynthesis and 2D mammography including computer-aided detection (CAD) when performed. COMPARISON: 1. MG MM DIG MAMM DX UNILAT LT CAD 06/03/2022 2:42 PM 2. MG MM DIG SCREENING MAMM BI W/CAD 05/25/2022 10:52 AM 3. MG MM DIG SCREENING MAMM BI W/CAD 01/03/2020 10:23 AM FINDINGS: MAMMOGRAPHY: Breast composition: There are scattered areas of fibroglandular density. Mass: No suspicious masses. Architectural distortion: None. Calcifications: No suspicious calcifications. Asymmetric density: None. Skin thickening: None. Axillary adenopathy: None. IMPRESSION: No mammographic evidence of malignancy. Annual screening is recommended unless otherwise clinically indicated. ASSESSMENT: BI-RADS Category 1: Negative.
== END 2024-03-07 23:59 | disposition home or self-care (01) ==
LOC: RAD 08:14
PROVIDERS: PCP Physician Assistant; Visit Provider Physician Assistant
DX: Z12.31 Encounter for screening mammogram for malignant neoplasm of breast (principal)
CPT/HCPCS: 77063; 77067

== ENCOUNTER 2024-06-21 08:42 | Emergency (ER) | payer BC, SELFPAY ==
[2024-06-21 08:55] VITALS: BP 138/82; PULSE 90; RESP 16; TEMP 36.5; O2SAT 100; BMI 26.6
[2024-06-21 09:10] LABS: UTC Influenza A Antigen Negative (Negative); UTC Influenza B Antigen Negative (Negative); UTC Strep Screen (Rapid) Negative (Negative)
--- NOTE | 2024-06-21 09:19 | ED_ITS ---
Discharge Plan Disposition Patient Disposition: Home, Self-Care Condition: Good Prescriptions Prescriptions: New amoxicillin 875 mg tablet 875 mg PO Q12H Qty: 20 0RF benzonatate 100 mg capsule 100 mg PO TIDP PRN (Reason: Cough) Qty: 30 0RF methylprednisolone 4 mg Tablets,Dose Pack 4 mg PO DIRECTED 6 Days Qty: 21 0RF Rx Instructions: Take 1 pack as directed for 6 days No Action albuterol sulfate [Proventil HFA] 90 mcg/actuation HFA aerosol inhaler 2 puff INHALATION Q6H 30 Days Qty: 6.7 0RF Rx Instructions: administer with spacer (DME) FreeStyle Omaira 14 Day Ferrum Misc See Rx Instructions .Route Qty: 1 0RF Rx Instructions: As directed fluticasone propionate 50 mcg/actuation spray,suspension 1 spray intranasal DAILY Qty: 1 0RF Rx Instructions: one spray in each nostril daily (DME) FreeStyle Omaira 14 Day Sensor Kit See Rx Instructions .ROUTE .COMPLEX Qty: 2 12RF Dose Instruction: USE DIRECTED Rx Instructions: USE DIRECTED glipizide 10 mg tablet extended release 24hr 10 mg PO DAILY Qty: 90 3RF Toujeo Max U-300 SoloStar 300 unit/mL (3 mL) insulin pen 150 unit SQ DAILY 30 Days Qty: 15 2RF pregabalin [Lyrica] 25 mg capsule 25 mg PO BID Qty: 60 2RF aspirin 81 mg tablet,delayed release (DR/EC) See Rx Instructions .ROUTE .COMPLEX Qty: 90 0RF Dose Instruction: Take 1 tablet by mouth once daily Rx Instructions: Take 1 tablet by mouth once daily atorvastatin 40 mg tablet 40 mg PO DAILY Qty: 90 3RF cholecalciferol (vitamin D3) 50 mcg (2,000 unit) capsule 50 mcg PO DAILY Qty: 90 3RF ergocalciferol (vitamin D2) 1,250 mcg (50,000 unit) capsule 1,250 mcg PO WEEKLY Qty: 14 3RF lisinopril 5 mg tablet See Rx Instructions .ROUTE .COMPLEX Qty: 90 0RF Dose Instruction: Take 1 tablet by mouth once daily Rx Instructions: Take 1 tablet by mouth once daily pregabalin 75 mg capsule 75 mg PO BID Qty: 60 2RF Mounjaro 7.5 mg/0.5 mL pen injector See Rx Instructions .ROUTE .COMPLEX Qty: 4 2RF Dose Instruction: INJECT 1 SYRINGE SUBCUTANEOUSLY ONCE A WEEK Rx Instructions: INJECT 1 SYRINGE SUBCUTANEOUSLY ONCE A WEEK Referrals Follow up/Referrals: Coco Galicia PA [Primary Care Provider] - See instructions Activity Restrictions/Add. Instructions Additional Instructions/Restrictions: Drink plenty of fluids. Take tylenol or ibuprofen for pain or fever. Take the medications as directed. Follow up with your regular doctor. GO TO THE ER FOR ANY WORSENING SYMPTOMS Clinical Impressions Clinical Impression: Pharyngitis, Bronchitis Instructions Patient Instructions: DI for Pharyngitis/Tonsillopharyngitis -- Adult, DI for Acute Bronchitis Print Language Print Language: Frisian Discharge ED Provider: Daniel Bethea [facility] General Stated complaint: sore throat, chills Mode of Arrival: Ambulatory Source of Information: Patient Limitations: No Limitations Time Seen by Provider: 06/21/24 09:18 Description of Symptoms (Recalled from Triage Doc. by RN): Reports sore throat, chills, night sweats, and headache since May. HEENT Symptoms (Recalled from RN notes): Yes Resp Symptoms (Recalled from RN notes): No Skin Symptoms (Recalled from RN notes): No MS Symptoms (Recalled from RN notes): No Functional Status (Recalled from RN notes): wnl History of Present Illness Provider Complaint: She states that for the past 5 days she has had a worsening sore throat, headache, and malaise. Related Data Previous Rx's ?Medication ?Instructions ?Recorded albuterol sulfate 90 mcg/actuation 2 puff inhalation Q6H 30 days #6.7 03/17/22 aerosol inhaler (Proventil HFA) grams flash glucose scanning reader #1 ea 03/17/22 (FreeStyle Omaira 14 Day Ferrum) fluticasone propionate 50 1 spray intranasal DAILY #1 ea 03/17/22 mcg/actuation nasal spray,suspension aspirin 81 mg tablet,delayed See Rx Instructions .Route 09/19/22 release .COMPLEX #90 tabs flash glucose sensor (FreeStyle #2 ea 01/09/23 Omaira 14 Day Sensor kit) glipizide 10 mg tablet, extended 10 mg PO DAILY #90 tabs 04/03/23 release 24 hr insulin glargine U-300 conc 300 150 unit (0.5 mL) SQ DAILY 30 days 04/03/23 unit/mL (3 mL) subcutaneous pen #15 mL (Toujeo Max U-300 SoloStar) pregabalin 25 mg capsule (Lyrica) 25 mg PO BID #60 caps 04/03/23 atorvastatin 40 mg tablet 40 mg PO DAILY #90 tabs 04/05/23 cholecalciferol (vitamin D3) 50 50 mcg PO DAILY #90 caps 04/05/23 mcg (2,000 unit) capsule ergocalciferol (vitamin D2) 1,250 1,250 mcg PO WEEKLY #14 caps 04/05/23 mcg (50,000 unit) capsule lisinopril 5 mg tablet See Rx Instructions .Route 11/13/23 .COMPLEX #90 tabs pregabalin 75 mg capsule 75 mg PO BID #60 caps 12/04/23 tirzepatide 7.5 mg/0.5 mL See Rx Instructions .Route 12/04/23 subcutaneous pen injector .COMPLEX #4 mL (Mounjaro) amoxicillin 875 mg tablet 875 mg PO Q12H #20 tabs 06/21/24 benzonatate 100 mg capsule 100 mg PO TIDP PRN Cough #30 caps 06/21/24 methylprednisolone 4 mg tablets in 4 mg PO DIRECTED 6 days #21 tabs 06/21/24 a dose pack Allergies Allergy/AdvReac Type Severity Reaction Status Date / Time No Known Allergies Allergy Verified 08/30/23 11:15 Worker's Comp Is this a Worker's Comp case?: No [facility] Disclaimer: The information contained in this section may have been updated after the patient was seen, as this information can be updated by other users. Medical History Bilateral foot pain Type 2 diabetes mellitus Social History Smoking Status: Former smoker alcohol intake: current alcohol intake frequency: holidays/special occasions only substance use type: denies use current occupational status: employed Travel in the last 8 weeks: None Have you lived/traveled outside [place] in past 30 days?: No Contact w/someone who lives/traveled outside [place] past 30 days?: No Exposure to someone with infectious disease in past 14 days?: No Do you have a fever (greater than 100.4 F or 38 C)?: No Have you tested positive for COVID-19: No Exposed to someone with COVID-19 in past 14 days?: No Do you have a sore throat?: Yes Do you have a cough?: Yes Do you have any weakness?: No Do you have any diarrhea?: No Are you experiencing any unusual bleeding?: No Do you have any muscle aches/pain?: No Do you have any abdominal pain?: No Are you experiencing loss of taste or smell?: No ROS Obtained: Yes All systems reviewed & no additional complaints except as documented Constitutional Constitutional: Reports chills and Reports fever(s) Eyes Eyes: Denies eye discharge ENT Ears, Nose, Mouth, and Throat: Reports as per HPI Cardiovascular Cardiovascular: Denies chest pain Respiratory Respiratory: Denies chest congestion and Reports cough Gastrointestinal Gastrointestingal: Reports nausea; Denies abdominal pain, constipation, cramping, diarrhea or vomiting Musculoskeletal Musculoskeletal: Denies arthralgias Integumentary/Breasts Skin/Breast: Denies rash Neurologic Neurologic: Denies paresthesias Physical Exam General General appearance: alert and in no apparent distress Eye Eye exam: Present normal appearance, PERRL and EOMI ENT ENT exam: Present mucous membranes moist and normal external ear exam Expanded ENT Exam External ear exam: Present normal external inspection TM/Canal exam: Bilateral TM: erythema and bulging Nose exam: Absent sinus tenderness Nasal speculum exam: Bilateral: normal Mouth exam: Present normal external inspection; Absent drooling Teeth exam: Present normal inspection Throat exam: Present tonsillar erythema and tonsillomegaly Neck Neck exam: Present normal inspection, full ROM and trachea midline; Absent tenderness, lymphadenopathy or thyromegaly Chest Chest inspection: Present normal inspection and symmetric chest wall rise; Absent tenderness or rash Respiratory Respiratory exam: Present normal lung sounds bilaterally; Absent respiratory distress, wheezes, stridor or accessory muscle use Cardiovascular Cardiovascular exam: Present regular rate, normal rhythm and normal heart sounds Abdominal Exam Abdominal exam: Present soft; Absent distention, tenderness, guarding, rebound or rigidity Extremities Exam Extremities exam: Present normal inspection, full ROM and normal capillary refill; Absent tenderness or calf tenderness Back Exam Back exam: Present normal inspection and full ROM; Absent tenderness Neurological Exam Neurological exam: Present alert and oriented X3 Psychiatric Psychiatric exam: Present normal affect and normal mood Skin Skin exam: Present warm, dry, intact and normal color Lymphatic Lymphatic Findings: no adenopathy Medical Decision Making Medical Records Medical records reviewed: No I reviewed the patient's medical records. Screening: Per USPSTF and CDC recommendations, given the prevalence of disease in our region, it is our hospital?s policy to screen for HIV and viral Hepatitis for all patients aged 18 and over and those with ongoing risk factors. [place] Inquiry Pt receiving controlled substance: No Vital Signs: 06/21/24 08:55 Temperature 97.7 F Temperature Source Oral Pulse Rate [Radial] 90 Respiratory Rate 16 Blood Pressure [Right Arm] 138/82 Blood Pressure Mean [Right Arm] 100 Blood Pressure Source [Right Arm] Automatic Cuff Blood Pressure Position [Right Arm] Sitting 02 Sat by Pulse Oximetry 100 Oxygen Delivery Method Room Air Lab Data Lab results reviewed: Yes I reviewed the patient's lab results. Lab Results 06/21/24 08:59: Influenza Type A Ag Negative, Influenza Type B Ag Negative, Strep Scn Rapid Clinic Negative Orders (Tests/Meds): ORDERS Category Date Time Status Strep Screen Confirmation Stat Micro 06/21/24 08:59 Received
[2024-06-21 09:52] VITALS: BP 138/82; PULSE 90; RESP 16; TEMP 36.5; O2SAT 100
== END 2024-06-21 09:53 | disposition home or self-care (01) ==
PROVIDERS: Emergency Provider Nurse Practitioner Family; PCP Physician Assistant
DX: J02.9 Acute pharyngitis, unspecified (principal); J20.9 Acute bronchitis, unspecified
CPT/HCPCS: 87804; 87880; 99212; G0381

== ENCOUNTER 2024-11-27 10:43 | Outpatient (CLI) | payer BC, SELFPAY ==
--- NOTE | 2024-11-27 10:47 | XR_ITS ---
FINAL REPORT CLINICAL HISTORY: Bilateral Foot Pain 3-4 months COMPARISON: 05/25/2022 FINDINGS: Three views of the left foot show no evidence of acute displaced fracture or dislocation of the visualized bony architecture. The joint spaces appear normal. IMPRESSION: Unremarkable exam. Reviewed, Interpreted and Dictated by Romina Toscano MD Transcribed by Ariana Arnlod Authenticated and [facility]
--- NOTE | 2024-11-27 10:47 | XR_ITS ---
FINAL REPORT CLINICAL HISTORY: Bilateral foot pain 3-4 months COMPARISON: 05/25/2022 FINDINGS: Three views of the right foot show no evidence of acute displaced fracture or dislocation of the visualized bony architecture. The joint spaces appear normal. IMPRESSION: Unremarkable exam. Reviewed, Interpreted and Dictated by Romina Toscano MD Transcribed by Ariana Arnold Authenticated and . [facility]
--- OUTSIDE RECORDS SUMMARY | 2024-11-27 10:47 | XMS_ITS | Data Portability ---
Author Organization [facility] [employer] [place] [facility] [place] Address [address] [place] [address] Assessment No assessment recorded. Plan of Treatment Reminders Order Date Submit Date Provider Last Modified By Organization Details Last Modified Time Details Appointments None recorded. Lab rapid strep group A, throat 2024 025 [email or web address] [facility], [facility] [place], [address], 5 14:13:48 rapid flu (A+B) 2024 025 [facility], [facility] [place], [address], 5 14:36:51 rapid SARS CoV 2 Ag, QL, IA, upper respiratory specimen 2024 025 [facility], [facility] [place], [address], 5 14:34:38 HbA1c (hemoglobin A1c), blood 2023 024 [email or web address] ([place]), [address] [place] [address], [address], 4 20:08:10 CMP, serum or plasma 2023 024 JT [facility] ([place]), [address] [place] [address], [address], 20:08:08 CBC w/ auto diff 2023 [facility]), [address] [place], [address], 4 20:08:07 albumin/cre atinine, mass ratio, urine 2023 [facility]), [address] [place], [address], 4 20:08:09 TSH + free T4, serum 2023 [facility]), [address] [place], [address], 20:08:06 vitamin D, 25-hydroxy, total, serum 2023 [facility]), [address] [place], [address], 20:08:10 vitamin B12 + folate, serum or blood 2023 [facility]), [address] [place], [address], 4 20:08:09 lipid panel, serum 2023 [facility]), [address] [place], [address], 4 20:08:08 unlisted lab - toxassure flex 19, [id number] 2023 [facility]), [facility] [place], [address], 4 20:08:06 Referral None recorded. Procedures None recorded. Surgeries None recorded. Imaging MAMMO, screening, bilateral - first available appt 2023 024 [facility] [address] [place], [address], 4 11:56:30 Medication Orders prednisone 20 mg tablet 2024 025 [facility], [address] [place], [address], 5 14:22:06 Zithromax Z-Marquis 250 mg tablet 2024 025 [facility], [address] [place], [address], 5 14:22:07 Sudafed 12 Hour 120 mg tablet,exte nded release 2024 025 [facility], [address] [place], [address], 5 14:22:07 ceftriaxone 1 gram solution for injection [address] [facility], [address] [place], [address], 5 15:55:36 Depo-Medrol 80 mg/mL suspension for injection [address], [address] [place], [address], 5 15:55:37 Patient TargetsNo targets recorded. Patient Instructions Encounter Date Encounter Id Patient Instructions Last Modified By Organization Details Last Modified Time 02/20/2024 [id number] influenza (flu) vaccine: care instructions [email or web address] Not available 02/20/2024 11:44:32 mammogram: about this test [email or web address] Not available 02/20/2024 11:58:31 05/23/2024 [id number] sore throat: car e instructions [email or web address] Not available 05/23/2024 14:13:48 cough: care instructions [email or web address] Not available 05/23/2024 14:13:48 pneumonia: care instructions [email or web address] Not available 05/23/2024 14:21:56 rest, fluids. take meds as prescribed. RTC if not improving [email or web address] Not available 05/23/2024 15:55:09 Reason for Referral None Reported. Results Created Date Observation Date Name Description Value Unit Range Abnormal Flag Note LastModifiedBy Organization Detail LastModifiedTime 02/20/20 24 02/23/2024 TOXAS SURE FLEX 19, UR summary report FINAL ===== ===== ===== ===== ===== ===== ===== ===== ===== ===== ===== ===== ===== === ToxAs sure Flex 19, Ur ===== ===== ===== ===== ===== ===== ===== ===== ===== ===== ===== ===== ===== === Test Resul t Flag Units Drug Prese nt Prega balin PRESE NT ===== ===== ===== ===== ===== ===== ===== ===== ===== ===== ===== ===== ===== === Test Resul t Flag Units Ref Range Creat inine 43 mg/dL >=20 ===== ===== ===== ===== ===== ===== ===== ===== ===== ===== ===== ===== ===== === Decla red Medic ation s: Medic ation list was not provi ded. ===== ===== ===== ===== ===== ===== ===== ===== ===== ===== ===== ===== ===== === For clini pierre consu ltati on, pleas e call . ===== ===== ===== ===== ===== ===== ===== ===== ===== ===== ===== ===== ===== === Not Available [facility] ([facility]) [address] [place], [address], 02/23/2024 20:08:06 02/20/2002/23/2024 TOXAS SURE FLEX 19, UR pdf . Not Available [facility] ([facility]) [address] [place], [address], 02/23/2024 20:08:06 02/20/2002/23/2024 TOXAS SURE FLEX 19, UR creatinine 43 mg/dL REFER ENCE RANGE : Ref Range >=20 Not Available [facility] ([facility]) [address] [place], [address], 02/23/2024 20:08:06 02/20/2002/23/2024 TOXAS SURE FLEX 19, UR amphetamines ia NEGATI VE NG/mL cutoff :300 Not Available [facility] ([facility]) [address] [place], [address], 02/23/2024 20:08:06 02/20/2002/23/2024 TOXAS SURE FLEX 19, UR benzodiazepi davon NEGATI VE Not Available [facility] ([facility]) [address] [place], [address], 02/23/2024 20:08:06 02/20/2002/23/2024 TOXAS SURE FLEX 19, UR diazepam NOT DETECT ED NG/mg _crea t Not Available [facility] ([facility]) [address] [place], [address], 02/23/2024 20:08:06 02/20/20 24 02/23/2024 TOXAS SURE FLEX 19, UR desmethyldia zepam NOT DETECT ED NG/mg _crea t Not Available [facility] ([facility]) [address] [facility], [place], [address], 02/23/2024 20:08:06 02/20/2002/23/2024 TOXAS SURE FLEX 19, UR oxazepam NOT DETECT ED NG/mg _crea t Not Available [facility] ([facility]) [address] [facility], [place], [address], 02/23/2024 20:08:06 02/20/20 24 02/23/2024 TOXAS SURE FLEX 19, UR temazepam NOT DETECT ED NG/mg _crea t Expec alysa metab olism of benzo diaze pine class drugs : Paren t Drug Detec alysa Metab olite s ----- ----- - ----- ----- ----- ----- Diaze koby: Desme thyld iazep am, Temaz epam, Oxaze koby Chlor diaze poxid e: Desme thyld iazep am, Oxaze koby Clora zepat e: Desme thyld iazep am, Oxaze koby Halaz epam: Desme thyld iazep am, Oxaze koby Temaz epam: Oxaze koby Oxaze koby: None Not Available [facility] ([facility]) [address] [facility], [place], [address], 02/23/2024 20:08:06 02/20/20 24 02/23/2024 TOXAS SURE FLEX 19, UR alprazolam NOT DETECT ED NG/mg _crea t Not Available [facility] ([facility]) [address] [facility], [place], [address], 02/23/2024 20:08:06 02/20/20 24 02/23/2024 TOXAS SURE FLEX 19, UR alpha-hydrox yalprazolam NOT DETECT ED NG/mg _crea t Not Available [facility] ([facility]) [address] [place], [address], 02/23/2024 20:08:06 02/20/20 24 02/23/2024 TOXAS SURE FLEX 19, UR desalkylflur azepam NOT DETECT ED NG/mg _crea t Not Available [facility] ([facility]) [address] [place], [address], 02/23/2024 20:08:06 02/20/2002/23/2024 TOXAS SURE FLEX 19, UR lorazepam NOT DETECT ED NG/mg _crea t Not Available [facility] ([facility]) [address] [place], [address], 02/23/2024 20:08:06 02/20/20 24 02/23/2024 TOXAS SURE FLEX 19, UR alpha-hydrox ytriazolam NOT DETECT ED NG/mg _crea t Not Available [facility] ([facility]) [address] [place], [address], 02/23/2024 20:08:06 02/20/20 24 02/23/2024 TOXAS SURE FLEX 19, UR clonazepam NOT DETECT ED NG/mg _crea t Not Available [facility] ([facility]) [address] [place], [address], 02/23/2024 20:08:06 02/20/20 24 02/23/2024 TOXAS SURE FLEX 19, UR 7-aminoclona zepam NOT DETECT ED NG/mg _crea t Not Available [facility] ([facility]) [address] [place], [address], 02/23/2024 20:08:06 02/20/20 24 02/23/2024 TOXAS SURE FLEX 19, UR midazolam NOT DETECT ED NG/mg _crea t Not Available [facility] ([facility]) [address] [place], [address], 02/23/2024 20:08:06 02/20/20 24 02/23/2024 TOXAS SURE FLEX 19, UR alpha-hydrox ymidazolam NOT DETECT ED NG/mg _crea t Not Available [facility] ([facility]) [address] [place], [address], 02/23/2024 20:08:06 02/20/20 24 02/23/2024 TOXAS SURE FLEX 19, UR flunitrazepa m NOT DETECT ED NG/mg _crea t Not Available [facility] ([facility]) [address] [place], [address], 02/23/2024 20:08:06 02/20/20 24 02/23/2024 TOXAS SURE FLEX 19, UR desmethylflu nitrazepam NOT DETECT ED NG/mg _crea t Not Available [facility] ([facility]) [address] [place], [address], 02/23/2024 20:08:06 02/20/20 24 02/23/2024 TOXAS SURE FLEX 19, UR cocaine metabolite ia NEGATI VE NG/mL cutoff :150 Not Available [facility] ([facility]) [address] [place], [address], 02/23/2024 20:08:06 02/20/20 24 02/23/2024 TOXAS SURE FLEX 19, UR ethanol biomarkers ia NEGATI VE NG/mL cutoff :500 Not Available [facility] ([facility]) [address] [place], [address], 02/23/2024 20:08:06 02/20/20 24 02/23/2024 TOXAS SURE FLEX 19, UR cannabinoids ia NEGATI VE NG/mL cutoff :20 Not Available [facility] ([facility]) [address] [place], [address], 02/23/2024 20:08:06 02/20/20 24 02/23/2024 TOXAS SURE FLEX 19, UR 6-acetylmorp moises ia NEGATI VE NG/mL cutoff :10 Not Available [facility] ([facility]) [address] [place], [address], 02/23/2024 20:08:06 02/20/20 24 02/23/2024 TOXAS SURE FLEX 19, UR opiate class ia NEGATI VE NG/mL cutoff :100 Not Available [facility] ([facility]) [address] [place], [address], 02/23/2024 20:08:06 02/20/20 24 02/23/2024 TOXAS SURE FLEX 19, UR oxycodone class ia NEGATI VE NG/mL cutoff :100 Not Available [facility] ([facility]) [address] [place], [address], 02/23/2024 20:08:06 02/20/20 24 02/23/2024 TOXAS SURE FLEX 19, UR methadone ia NEGATI VE NG/mL cutoff :100 Not Available [facility] ([facility]) [address] [place], [address], 02/23/2024 20:08:06 02/20/20 24 02/23/2024 TOXAS SURE FLEX 19, UR methadone mtb ia NEGATI VE NG/mL cutoff :100 Not Available [facility] ([facility]) [address] [place], [address], 02/23/2024 20:08:06 02/20/20 24 02/23/2024 TOXAS SURE FLEX 19, UR buprenorphin e ia NEGATI VE NG/mL cutoff :5.0 Not Available [facility] ([facility]) [address] [place], [address], 02/23/2024 20:08:06 02/20/20 24 02/23/2024 TOXAS SURE FLEX 19, UR fentanyl ia NEGATI VE NG/mL cutoff :2.0 Not Available [facility] ([facility]) [address] [place], [address], 02/23/2024 20:08:06 02/20/20 24 02/23/2024 TOXAS SURE FLEX 19, UR tapentadol ia NEGATI VE NG/mL cutoff :200 Not Available [facility] ([facility]) [address] [place], [address], 02/23/2024 20:08:06 02/20/2002/23/2024 TOXAS SURE FLEX 19, UR propoxyphene ia NEGATI VE NG/mL cutoff :300 Not Available [facility] ([facility]) [address] [place], [address], 02/23/2024 20:08:06 02/20/20 24 02/23/2024 TOXAS SURE FLEX 19, UR tramadol ia NEGATI VE NG/mL cutoff :200 Not Available [facility] ([facility]) [address] [place] [address], [address], 02/23/2024 20:08:06 02/20/20 24 02/23/2024 TOXAS SURE FLEX 19, UR methylphenid ate ia NEGATI VE NG/mL cutoff :100 Not Available [facility] ([facility]) [address] [place], [address], 02/23/2024 20:08:06 02/20/20 24 02/23/2024 TOXAS SURE FLEX 19, UR barbiturates ia NEGATI VE NG/mL cutoff :200 Not Available [facility] ([facility]) [address] [place] [address], [address], 02/23/2024 20:08:06 02/20/20 24 02/23/2024 TOXAS SURE FLEX 19, UR phencyclidin e ia NEGATI VE NG/mL cutoff :25 Not Available [facility] ([facility]) [address] [place], [address], 02/23/2024 20:08:06 02/20/20 24 02/23/2024 TOXAS SURE FLEX 19, UR gabapentin ia NEGATI VE ug/mL cutoff :1.0 Not Available [facility] ([facility]) [address] [place], [address], 02/23/2024 20:08:06 02/20/20 24 02/23/2024 TOXAS SURE FLEX 19, UR anticonvulsa nts +POSIT RICHARD+ Not Available [facility] ([facility]) [address] [place], [address], 02/23/2024 20:08:06 02/20/20 24 02/23/2024 TOXAS SURE FLEX 19, UR pregabalin PRESEN T Not Available [facility] ([facility]) [address] [place], [address], 02/23/2024 20:08:06 02/20/20 24 02/23/2024 TOXAS SURE FLEX 19, UR carisoprodol ia NEGATI VE NG/mL cutoff :100 Not Available [facility] ([facility]) [address] [place], [address], 02/23/2024 20:08:06 02/20/20 24 02/21/2024 TSH+F REE T4 TSH 0.587 uIU/m L 0.450- 4.500 normal Not Available [facility] ([facility]) [address] [place], [address], 02/23/2024 20:08:06 02/20/20 24 02/21/2024 TSH+F REE T4 T4,free(dire ct) 1.40 NG/dL 0.82-1 .77 normal Not Available [facility] ([facility]) [address] [place], [address], 02/23/2024 20:08:06 02/20/20 24 02/21/2024 CBC WITH DIFFE RENTI AL/PL ATELE T WBC 10.8 x10e3 /uL 3.4-10 .8 normal Not Available [facility] ([facility]) [address] [facility], [place], [address], 02/23/2024 20:08:07 02/20/20 24 02/21/2024 CBC WITH DIFFE RENTI AL/PL ATELE T RBC 4.56 x10e6 /uL 3.77-5 .28 normal Not Available [facility] ([facility]) [address] [place], [address], 02/23/2024 20:08:07 02/20/20 24 02/21/2024 CBC WITH DIFFE RENTI AL/PL ATELE T hemoglobin 14.5 g/dL 11.1-1 5.9 normal Not Available [facility] ([facility]) [address] [facility], [place], [address], 02/23/2024 20:08:07 02/20/20 24 02/21/2024 CBC WITH DIFFE RENTI AL/PL ATELE T hematocrit 42.3 % 34.0-4 6.6 normal Not Available [facility] ([facility]) [address] [place], [address], 02/23/2024 20:08:07 02/20/20 24 02/21/2024 CBC WITH DIFFE RENTI AL/PL ATELE T MCV 93 fL 79-97 normal Not Available [facility] ([facility]) [address] [place], [address], 02/23/2024 20:08:07 02/20/20 24 02/21/2024 CBC WITH DIFFE RENTI AL/PL ATELE T MCH 31.8 pg 26.6-3 3.0 normal Not Available [facility] ([facility]) [address] [place], [address], 02/23/2024 20:08:07 02/20/20 24 02/21/2024 CBC WITH DIFFE RENTI AL/PL ATELE T MCHC 34.3 g/dL 31.5-3 5.7 normal Not Available [facility] ([facility]) [address] [facility], [place], [address], 02/23/2024 20:08:07 02/20/20 24 02/21/2024 CBC WITH DIFFE RENTI AL/PL ATELE T RDW 12.1 % 11.7-1 5.4 Not Available [facility] ([facility]) [address] [facility], [place], [address], 02/23/2024 20:08:07 02/20/20 24 02/21/2024 CBC WITH DIFFE RENTI AL/PL ATELE T platelets 237 x10e3 /uL 150-45 0 normal Not Available [facility] ([facility]) [address] [facility], [place], [address], 02/23/2024 20:08:07 02/20/20 24 02/21/2024 CBC WITH DIFFE RENTI AL/PL ATELE T neutrophils 65 % not estab. normal Not Available [facility] ([facility]) [address] [facility], [place], [address], 02/23/2024 20:08:07 02/20/20 24 02/21/2024 CBC WITH DIFFE RENTI AL/PL ATELE T lymphs 26 % not estab. normal Not Available [facility] ([facility]) [address] [facility], [place], [address], 02/23/2024 20:08:07 02/20/20 24 02/21/2024 CBC WITH DIFFE RENTI AL/PL ATELE T monocytes 6 % not estab. normal Not Available [facility] ([facility]) [address] [facility], [place], [address], 02/23/2024 20:08:07 02/20/20 24 02/21/2024 CBC WITH DIFFE RENTI AL/PL ATELE T eos 2 % not estab. normal Not Available [facility] ([facility]) [address] [facility], [place], [address], 02/23/2024 20:08:07 02/20/20 24 02/21/2024 CBC WITH DIFFE RENTI AL/PL ATELE T basos 0 % not estab. normal Not Available [facility] ([facility]) [address] [facility], [place], [address], 02/23/2024 20:08:07 02/20/2002/21/2024 CBC WITH DIFFE RENTI AL/PL ATELE T immature cells [employer] Not Available [facility] ([facility]) [address] [facility], [place], [address], 02/23/2024 20:08:07 02/20/2002/21/2024 CBC WITH DIFFE RENTI AL/PL ATELE T neutrophils (absolute) 7.2 x10e3 /uL 1.4-7. 0 above high normal Not Available [facility] ([facility]) [address] [facility], [place], [address], 02/23/2024 20:08:07 02/20/20 24 02/21/2024 CBC WITH DIFFE RENTI AL/PL ATELE T lymphs (absolute) 2.8 x10e3 /uL 0.7-3. 1 normal Not Available [facility] ([facility]) [address] [place], [address], 02/23/2024 20:08:07 02/20/20 24 02/21/2024 CBC WITH DIFFE RENTI AL/PL ATELE T monocytes(ab solute) 0.6 x10e3 /uL 0.1-0. 9 normal Not Available [facility] ([facility]) [address] [place], [address], 02/23/2024 20:08:07 02/20/20 24 02/21/2024 CBC WITH DIFFE RENTI AL/PL ATELE T eos (absolute) 0.2 x10e3 /uL 0.0-0. 4 normal Not Available [facility] ([facility]) [address] [facility], [place], [address], 02/23/2024 20:08:07 02/20/20 24 02/21/2024 CBC WITH DIFFE RENTI AL/PL ATELE T baso (absolute) 0.0 x10e3 /uL 0.0-0. 2 normal Not Available [facility] ([facility]) [address] [facility], [place], [address], 02/23/2024 20:08:07 02/20/20 24 02/21/2024 CBC WITH DIFFE RENTI AL/PL ATELE T immature granulocytes 1 % not estab. Not Available [facility] ([facility]) [address] [facility], [place], [address], 02/23/2024 20:08:07 02/20/20 24 02/21/2024 CBC WITH DIFFE RENTI AL/PL ATELE T immature grans (abs) 0.1 x10e3 /uL 0.0-0. 1 Not Available [facility] ([facility]) [address] [facility], [place], [address], 02/23/2024 20:08:07 02/20/20 24 02/21/2024 CBC WITH DIFFE RENTI AL/PL ATELE T NRBC [employer]IST Not Available [facility] ([facility]) [address] [facility], [place], [address], 02/23/2024 20:08:07 02/20/20 24 02/21/2024 CBC WITH DIFFE RENTI AL/PL ATELE T hematology comments: [employer]IST Not Available [facility] ([facility]) [address] [facility], [place], [address], 02/23/2024 20:08:07 02/20/20 24 02/21/2024 COMP. METAB OLIC PANEL (14) glucose 129 mg/dL 70-99 above high normal Not Available [facility] ([facility]) [address] [place], [address], 02/23/2024 20:08:08 02/20/20 24 02/21/2024 COMP. METAB OLIC PANEL (14) BUN 10 mg/dL 6-24 normal Not Available [facility] ([facility]) [address] [place], [address], 02/23/2024 20:08:08 02/20/20 24 02/21/2024 COMP. METAB OLIC PANEL (14) creatinine 0.68 mg/dL 0.57-1 .00 normal Not Available [facility] ([facility]) [address] [place], [address], 02/23/2024 20:08:08 02/20/20 24 02/21/2024 COMP. METAB OLIC PANEL (14) eGFR 110 mL/mi n/1.7 3 >59 normal Not Available [facility] ([facility]) [address] [place], [address], 02/23/2024 20:08:08 02/20/20 24 02/21/2024 COMP. METAB OLIC PANEL (14) BUN/creatini ne ratio 15 9-23 normal Not Available [facility] ([facility]) [address] [place], [address], 02/23/2024 20:08:08 02/20/20 24 02/21/2024 COMP. METAB OLIC PANEL (14) sodium 137 mmol/ L 134-14 4 normal Not Available [facility] ([facility]) [address] [place], [address], 02/23/2024 20:08:08 02/20/20 24 02/21/2024 COMP. METAB OLIC PANEL (14) potassium 4.5 mmol/ L 3.5-5. 2 normal Not Available [facility] ([facility]) [address] [place], [address], 02/23/2024 20:08:08 02/20/20 24 02/21/2024 COMP. METAB OLIC PANEL (14) chloride 100 mmol/ L 96-106 normal Not Available [facility] ([facility]) [address] [place], [address], 02/23/2024 20:08:08 02/20/20 24 02/21/2024 COMP. METAB OLIC PANEL (14) carbon dioxide, total 21 mmol/ L 20-29 normal Not Available [facility] ([facility]) [address] [place], [address], 02/23/2024 20:08:08 02/20/20 24 02/21/2024 COMP. METAB OLIC PANEL (14) calcium 9.7 mg/dL 8.7-10 .2 normal Not Available [facility] ([facility]) [address] [place], [address], 02/23/2024 20:08:08 02/20/20 24 02/21/2024 COMP. METAB OLIC PANEL (14) protein, total 7.6 g/dL 6.0-8. 5 normal Not Available [facility] ([facility]) [address] [facility] [place], [address], 02/23/2024 20:08:08 02/20/20 24 02/21/2024 COMP. METAB OLIC PANEL (14) albumin 4.9 g/dL 3.9-4. 9 normal Not Available [facility] ([facility]) [address] [facility] [place], [address], 02/23/2024 20:08:08 02/20/20 24 02/21/2024 COMP. METAB OLIC PANEL (14) globulin, total 2.7 g/dL 1.5-4. 5 Not Available [facility] ([facility]) [address] [place], [address], 02/23/2024 20:08:08 02/20/20 24 02/21/2024 COMP. METAB OLIC PANEL (14) bilirubin, total 0.4 mg/dL 0.0-1. 2 normal Not Available [facility] ([facility]) [address] [place], [address], 02/23/2024 20:08:08 02/20/20 24 02/21/2024 COMP. METAB OLIC PANEL (14) alkaline phosphatase 136 IU/L 44-121 above high normal Not Available [facility] ([facility]) [address] [place], [address], 02/23/2024 20:08:08 02/20/20 24 02/21/2024 COMP. METAB OLIC PANEL (14) AST (SGOT) 21 IU/L 0-40 normal Not Available [facility] ([facility]) [address] [place], [address], 02/23/2024 20:08:08 02/20/20 24 02/21/2024 COMP. METAB OLIC PANEL (14) ALT (SGPT) 24 IU/L 0-32 normal Not Available [facility] ([facility]) [address] [place], [address], 02/23/2024 20:08:08 02/20/20 24 02/21/2024 LIPID PANEL cholesterol, total 122 mg/dL 100-19 9 normal Not Available [facility] ([facility]) [address] [place], [address], 02/23/2024 20:08:08 02/20/20 24 02/21/2024 LIPID PANEL triglyceride s 150 mg/dL 0-149 above high normal Not Available [facility] ([facility]) [address] [place], [address], 02/23/2024 20:08:08 02/20/20 24 02/21/2024 LIPID PANEL HDL cholesterol 42 mg/dL >39 normal Not Available [facility]) [address] [facility], [place], [address], 02/23/2024 20:08:08 02/20/20 24 02/21/2024 LIPID PANEL VLDL cholesterol pierre 26 mg/dL 5-40 Not Available [facility] ([facility]) [address] [facility], [place], [address], 02/23/2024 20:08:08 02/20/20 24 02/21/2024 LIPID PANEL LDL chol calc ([facility]) 54 mg/dL 0-99 Not Available [facility]) [address] [facility], [place], [address], 02/23/2024 20:08:08 02/20/20 24 02/21/2024 LIPID PANEL LDL calc comment: [employer]IST Not Available [facility] ([facility]) [address] [facility], [place], [address], 02/23/2024 20:08:08 02/20/20 24 02/21/2024 ALBUM IN/CR EATIN INE RATIO ,URIN E creatinine, urine 43.6 mg/dL not estab. normal Not Available [facility] ([facility]) [address] [facility], [place], [address], 02/23/2024 20:08:09 02/20/20 24 02/21/2024 ALBUM IN/CR EATIN INE RATIO ,URIN E albumin, urine <3.0 ug/mL not estab. Not Available [facility] ([facility]) [address] [place], [address], 02/23/2024 20:08:09 02/20/20 24 02/21/2024 ALBUM IN/CR EATIN INE RATIO ,URIN E alb/creat ratio <7 mg/g_ creat 0-29 Iveth l: 0 - 29 Moder ately incre ased: 30 - 300 Sever ghanshyam incre ased: >300 Not Available [facility] ([facility]) [address] [facility], [place], [address], 02/23/2024 20:08:09 02/20/20 24 02/21/2024 VITAM IN B12 AND FOLAT E vitamin B12 280 pg/mL 232-12 45 normal Not Available [facility] ([facility]) [address] [facility], [place], [address], 02/23/2024 20:08:09 02/20/20 24 02/21/2024 VITAM IN B12 AND FOLAT E folate (folic acid), serum 6.8 NG/mL >3.0 normal A serum folat e karen ntrat ion of less than 3.1 ng/mL is consi dered to repre sent clini pierre defic iency . Not Available [facility] ([facility]) [address] [facility], [place], [address], 02/23/2024 20:08:09 02/20/20 24 02/21/2024 HEMOG LOBIN A1C hemoglobin A1C 6.9 % 4.8-5. 6 above high normal Predi abete s: 5.7 - 6.4 Diabe meg: >6.4 Glyce amanda contr ol for adult s with diabe meg: <7.0 Not Available [facility] ([facility]) [address] [place], [address], 02/23/2024 20:08:10 02/20/20 24 02/21/2024 VITAM IN D, 25-HY DROXY vitamin D, 25-hydroxy 92.6 NG/mL 30.0-1 00.0 Vitam in D defic iency has been defin ed by the [facility] ine and an Endoc rine Socie ty pract ice guide line as a level of serum 25-OH vitam in D less than 20 ng/mL (1,2) . The Endoc rine Socie ty went on to furth er defin e vitam in D insuf ficie ncy as a level betwe en 21 and 29 ng/mL (2). 1. IOM (Inst itute of Medic ine). 2010. [place] refer ence elizabeth es for calci um and D. Beto bravo [place]: [facility] . 2. Vamshi k MF, Binkl ey [place], Bisch off-F errar i CABRAL, et al. Evalu ation , treat ment, and preve ntion of vitam in D defic iency : an Endoc rine Socie ty clini pierre pract ice guide line. JCEM. 2010; 96(7) :1911 -30. Not Available [facility] ([facility]) [address] [facility], [place], [address], 02/23/2024 20:08:10 05/23/19 25 05/23/2024 rapid SARS CoV 2 Ag, QL, IA, upper respi rator y speci men SARS CoV Ag negati ve Not Available [address], [id number], 05/23/2024 14:04:31 05/23/19 25 05/23/2024 rapid flu (A+B) Flu A negati ve Not Available [address], [address], 05/23/2024 14:04:26 05/23/19 25 05/23/2024 rapid flu (A+B) Flu B positi ve Not Available [address], [address], 05/23/2024 14:04:26 05/23/19 25 05/23/2024 rapid strep group A, throa t Strep negati ve Not Available [address], [address], 05/23/2024 14:04:58 03/13/20 24 03/07/2024 MAMMO , scree juve, bilat eral No observ ation record ed. [facility] (Scheduling) [address], [place], [address], 05/23/2024 15:52:56 Result Notes None recorded. Problems Name Problem SNOMED Code Status Onset Date Resolution Date Notes Provider Name and Address Organization Details Recorded Time Neuropathy due to type 2 diabetes mellitus 4012820108492 06 Active 2023 RITO Canseco [address] [place] [address], [address], [employer] 4 14:28:25 Diabetes mellitus 05357685 Active 2023 RITO Canseco [address] [place] [address], [address], [employer] 4 14:28:19 Palpitation s 44940419 Active 2023 RITO Cansceo [address] [place] [address], [address], [employer] 4 14:28:31 Vitamin D deficiency 85483345 Active 2023 RITO Canseco [address] [place] [address], [address] 8, [employer] 4 14:28:42 Influenza B virus present 783393699 Active 2024 RITO Canseco [address] [place] [address], [address], [employer] 5 14:20:53 Community acquired pneumonia 819687691 Active 2024 RITO Canseco [address] [place] [address], [address] 8, [employer] 5 14:21:07 Hyperlipide tiara 31050903 Active 2024 RITO Canseco [address] [place] [address], [address] 8, [employer] 5 12:02:29 Neuropathy 636210556 Active 2024 RITO Canseco [address] [place] [address], [address], [employer] 5 12:02:20 Notes:Some problems listed i n Document: #[id number] could not be added to this patient's chart. Please review this document and add these problems to the patient's chart manually as needed. Problem Notes None recorded. Procedures Surgical History Date Name Laterality Status Provider Name and Address Organization Details Recorded Time 4 Most Recent Mammogram completed [employer] 05/23/2024 14:02:49 9 Date of Last Pap Smear completed [employer] 02/20/2024 11:10:25 Imaging Results None recorded. Procedure Notes None recorded. Medical Equipment None Reported. Allergies Allergen ID Allergen Name Allergen Category Reaction Reaction Severity Criticality Documentation Date Start Date Code Code System Note Provider Name and Address Organization Details Recorded Time 52486 metformin medicatio n Not available Not available Not available 02/20/2024 6809 [employer] [facility], [employer] 4 11:05:56 Medications Name Sig Start Date Stop Date Status Note LastModified by Organization Details LastModified Time vitamin d3 (benson) 50mcg cap TAKE 1 CAPSULE BY MOUTH ONCE DAILY active Not Available Not Available No t Available atorvastati n 40 mg tablet 1 QHS for cholester ol 2024 active Not Available Not Available Not Avai lable bupropion HCl SR 150 mg tablet,12 hr sustained-r elease TAKE 1 TABLET BY MOUTH TWICE DAILY active Not Available Not Available No t Available atorvastati n 20 mg tablet TAKE 1 TABLET BY MOUTH ONCE DAILY 02/19 completed Not Available Not Available Not Available azithromyci n 250 mg tablet TAKE 2 TABLETS (500 MG) BY ORAL ROUTE ONCE DAILY FOR 1 DAY THEN 1 TABLET (250 MG) BY ORAL ROUTE ONCE DAILY FOR 4 DAYS active Not Available Not Available No t Available benzonatate 200 mg capsule TAKE 1 CAPSULE BY MOUTH THREE TIMES DAILY active Not Available Not Available No t Available glipizide ER 10 mg tablet, extended release 24 hr Take 1 tablet by mouth once daily for 90 days 2024 active Not Available Not Available Not Avai lable phenazopyri dine 200 mg tablet TAKE 1 TABLET BY MOUTH THREE TIMES DAILY NEEDED WITH MEALS OR AFTER MEALS, FOR UP TO 2 DAYS 05/23 completed Not Available Not Available Not Available prednisone 20 mg tablet Take 1 tablet twice a day by oral route as directed for 5 days. active Not Available Not Available No t Available aspirin 81 mg tablet,rick yed release Take 1 tablet by mouth once daily for 90 days 2024 active Not Available Not Available Not Avai lable bupropion HCl SR 100 mg tablet,12 hr sustained-r elease TAKE 1 TABLET BY MOUTH TWICE DAILY 02/19 completed Not Available Not Available Not Available Depo-Medrol 80 mg/mL suspension for injection Take 80 mg every day by injection route. 2024 active Not Available Not Available Not Avai lable ceftriaxone 1 gram solution for injection Take 1 g every day by injection route. 2024 active Not Available Not Available Not Avai lable amoxicillin 875 mg tablet TAKE 1 TABLET BY MOUTH EVERY 12 HOURS active Not Available Not Available No t Available benzonatate 100 mg capsule TAKE 1 CAPSULE BY MOUTH THREE TIMES DAILY NEEDED FOR COUGH active Not Available Not Available No t Available lidocaine HCl 2 % mucosal solution GARGLE AND SPIT FOR 30 SECONDS, USE 10 ML EVERY 3 HOURS NEEDED 05/23 completed Not Available Not Available Not Available lisinopril 5 mg tablet TAKE 1 TABLET BY MOUTH ONCE DAILY active Not Available Not Available No t Available ergocalcife rol (vitamin D2) 1,250 mcg (50,000 unit) capsule TAKE 1 CAPSULE BY MOUTH ONCE A WEEK active Not Available Not Available No t Available azelastine 137 mcg (0.1 %) nasal spray USE 2 SPRAY(S) IN EACH NOSTRIL TWICE DAILY active Not Available Not Available No t Available methylpredn isolone 4 mg tablets in a dose pack TAKE BY MOUTH DIRECTED ON INSIDE OF PACKAGE active Not Available Not Available No t Available Sudafed 12 Hour 120 mg tablet,exte nded release Take 1 tablet every 12 hours by oral route as needed for 10 days. 2024 active Not Available Not Available Not Avai lable nitrofurant oin monohydrate /macrocryst als 100 mg capsule TAKE 1 CAPSULE BY MOUTH TWICE DAILY FOR 5 DAYS 05/23 completed Not Available Not Available Not Available duloxetine 30 mg capsule,del ayed release TAKE 1 CAPSULE BY MOUTH ONCE DAILY 02/19 completed Not Available Not Available Not Available duloxetine 60 mg capsule,del ayed release TAKE 1 CAPSULE BY MOUTH ONCE DAILY 02/19 completed Not Available Not Available Not Available pregabalin 25 mg capsule TAKE 1 CAPSULE BY MOUTH TWICE DAILY 02/19 completed Not Available Not Available Not Available pregabalin 75 mg capsule TAKE 1 CAPSULE BY MOUTH TWICE DAILY USE DIRECTED FOR DIABETIC NEUROPATH Y active Not Available Not Available No t Available cholecalcif jose (vitamin D3) 50 mcg (2,000 unit) capsule TAKE 1 CAPSULE BY MOUTH ONCE DAILY 02/19 completed Not Available Not Available Not Available Rexulti 0.5 mg tablet TAKE 1/2 (ONE-HALF ) TABLET BY MOUTH AT BEDTIME FOR 14 DAYS, THEN INCREASE TO 1 TABLET AT BEDTIME 02/19 completed Not Available Not Available Not Available Touvioleta Max U-300 SoloStar 300 unit/mL (3 mL) subcutaneou s insulin pen INJECT 150 UNITS SUBCUTANE OUSLY DAILY FOR 30 DAYS 02/19 completed Not Available Not Available Not Available FreeStyle Omaira 14 Day Sensor kit USE DIRECTED active Not Available Not Available No t Available Mounjaro 7.5 mg/0.5 mL subcutaneou s pen injector INJECT 1 SYRINGE SUBCUTANE OUSLY ONCE A WEEK active Not Available Not Available No t Available Mounjaro 5 mg/0.5 mL subcutaneou s pen injector INJECT 1 SYRINGE SUBCUTANE OUSLY ONCE A WEEK 02/19 completed Not Available Not Available Not Available Vitals Date Recorded Body height Body mass index (BMI) Body weight Oxygen saturation Oxygen saturation in Arterial blood by Pulse oximetry Heart rate Body temperature Systolic And Diastolic Provider Name and Address Organization Details Last Updated DateTime 5 167.64 cm 29.3 kg/m2 46170.3 7 g 98 % 98 % 90 /min 97.9 [degF] 136/78 mm[Hg] [facility] [employer] 5 13:56:12 Date Recorded Body weight Body mass index (BMI) Body height Heart rate Oxygen saturation Oxygen saturation in Arterial blood by Pulse oximetry Systolic And Diastolic Provider Name and Address Organization Details Last Updated DateTime 4 37139.4 4 g 28.7 kg/m2 167.64 cm 94 /min 98 % 98 % 127/76 mm[Hg] Bridget Lyle [employer] 11:05:44 Social History Question Answer Notes LastModified by Organizat ion Details LastModified Time Tobacco Smoking Status Former Smoker Bridget nagel, [employer] 02/20/2024 11:15:04 Do You Have An Advance Directive? No Information not available 02/20/2024 Is Your Home Air Conditioned? Yes Information not available 02/20/2024 Are You Blind Or Do You Have Difficulty Seeing? No Information not available 02/20/2024 What Is Your Level Of Caffeine Consumption? Occasional Information not available 02/20/2024 Are You A Caregiver? No Information not available 02/20/2024 In The 14 Days Before Symptom Onset, Have You Had Close Contact With A Laboratory-confir med COVID-19 While That Case Was Ill? No Information not available 02/20/2024 In The 14 Days Before Symptom Onset, Have You Had Close Contact With A Person Who Is Under Investigation For COVID-19 While That Person Was Ill? No Information not available 02/20/2024 Have You Been To An Area Known To Be High Risk For COVID-19? No Information not available 02/20/2024 Are You Deaf Or Do You Have Serious Difficulty Hearing? No Information not available 02/20/2024 What Type Of Diet Are You Following? REGULAR Information not available 02/20/2024 Who Is Your Employer? [employer] Information not available 02/20/2024 When Did You Quit Smoking? 11-15yearssinc elastcigarette Information not available 02/20/2024 Are There Any Guns Present In Your Home? Yes Information not available 02/20/2024 Which Of Your Hands Is Dominant? Right Information not available 02/20/2024 Do You Have A Medical Power Of Hand Hose Cutter? No Information not available 02/20/2024 What Was The Date Of Your Most Recent Tobacco Screening? 05/23/2024 Information not available 05/23/2024 Are There Any Occupational Health Risks Where You Work? No Information not available 02/20/2024 Have You Ever Been Counseled For Unhealthy Alcohol Use? No Information not available 02/20/2024 Do You Have Any Pets? Yes Information not available 02/20/2024 What Is Your Relationship Status? Information not available 02/20/2024 Have You Repeated Any Grades? No Information not available 02/20/2024 Do You Use Your Seat Belt Or Car Seat Routinely? Yes Information not available 05/23/2024 Do You Have Smoke And Carbon Monoxide Detectors In Your Home? Yes Information not available 02/20/2024 At What Age Did You Start Smoking Tobacco? 15 Information not available 02/20/2024 Are You Passively Exposed To Smoke? No Information no t available 02/20/2024 Are There Any Smokers In Your House? No Information not available 02/20/2024 Do You Participate In Social Media? Yes Information not available 05/23/2024 What Types Of Sporting Activities Do You Participate In? LOL Information not available 02/20/2024 Do You Use Sunscreen Routinely? Yes Information not available 02/20/2024 Has Tobacco Cessation Counseling Been Provided? No Information not available 05/23/2024 On What Date Was Tobacco Cessation Counseling Provided? 05/23/2024 Information not available 05/23/2024 How Many Years Have You Smoked Tobacco? 18 Information not available 02/20/2024 Have You Recently Traveled Abroad? No Information not available 02/20/2024 Do You Have Difficulty Walking Or Climbing Stairs? No Information not available 02/20/2024 Are You Currently In School? No Information not available 05/23/2024 Do You Have Any Dietary Restrictions? No Information not available 05/23/2024 Sex: Female Functional Status Question Answer Note LastModified by Organizat ion Details LastModified Time How many times per week do you consume alcohol? 3-4 times per week Information not available 02/20/2024 Do you use any illicit or recreational drugs? No Information not available 02/20/2024 Do you or have you ever used any other forms of tobacco or nicotine? No Information not available 02/20/2024 What is your level of alcohol consumption? Occasional Information not available 02/20/2024 Are you currently employed? Yes Information not available 02/20/2024 Do you have transportation difficulties? No Information not available 02/20/2024 Are you able to walk? [employer] Information not available 02/20/2024 Do you have difficulty doing errands alone? No Information not available 02/20/2024 Are you able to care for yourself? Yes Information n ot available 02/20/2024 Do you have difficulty dressing or bathing? No Information not available 02/20/2024 What is your exercise level? None Information not available 02/20/2024 Mental Status Question Answer Note LastModified by Organizat ion Details LastModified Time Do you feel stressed (tense, restless, nervous, or anxious, or unable to sleep at night)? HA3879-9 Information not available 05/23/2024 Do you have difficulty concentrating, remembering or making decisions? No Information no t available 02/20/2024 Family History Relationship Description Onset Age of this Age Resolved Age Notes LastModified by Organization Details LastModified Time Maternal Grandmother Heart disease Not available 2023 11:12:41 Maternal Grandmother Type 1 diabetes mellitus Not available 2023 11:13:38 Mother Type 2 diabetes mellitus Not available 2023 11:13:53 Mother Myasthenia gravis Not available 2023 11:14:25 Father Type 2 diabetes mellitus Not available 2023 11:14:00 Medical History Condition Response Coronary Artery Disease N Gout N Other N Kidney Stones N Blood Diseases N Hyperthyroidism N Breast Cancer N Blood Transfusion N Emergency room visit since last appointm ent. N Lung Disease N COPD N Depression N Hypothyroidism N Dermatologic Disorders N Defects or Inherited Disease N Developmental or Behavioral Disorders N Breast Problem N Difficulty Swallowing N Anesthesia Complications N History of STI N Anxiety Disorder N Meniere's disease N Autoimmune disease N Muscle, Joint, or Bone Problems N Vision or Eye Problems N Arthritis N Infertility N Polyps N Mental Disorder N Congenital Anomalies N Acid Reflux (GERD) Y Cancer N Stroke N Neurologic/Epilepsy N Endometriosis N Bladder or Kidney Problems N High Cholesterol N Liver Disease N Organ Transplant N Psychiatric/Mental Health Condition N Dialysis N Headaches N Fibromyalgia N Schizophrenia N Kidney Disease N Allergies/Hayfever N Heart Problems N Ear or Hearing Problems N Hospitalizations N Learning Disorder N Artificial Joints N Thyroid Problems N GI Problems N Acne N ADD/ADHD N Eating Disorder N Anemia N Constipation N Mental Illness N Diabetes Y Ovarian Cancer N Bedwetting N Hepatitis/Liver Disease N Tuberculosis N Eczema N Abuse/Domestic Violence N Diverticulitis N Asthma N Trauma/Violence N Substance Abuse N Reflux/GERD N Depression/ depression N Hepatitis N Heart Disease N Pulmonary Embolism N Tourette Syndrome N Chronic Ear Infections N Pre-Eclampsia N Hypertension N Chicken Pox N Autism Spectrum Disorder (ASD) N Osteoporosis N Thrombophilias N Gynecological History Statement/Question Response Menses Monthly Y Date of Last Pap Smear 02/18/2019 Most Recent Mammogram 03/07/2024 Date of LMP 05/12/2025 LMP Approximate Obstetrics History GPAL:G 0 P 0 0 0 0 Immunizations Vaccine Type Date Status Note Provider Nam e and Address Organization Details Recorded Time Influenza, split virus, trivalent, PF 4 completed RITO Canseco [address] [place] [address], [phone], [employer] 02/20/2024 14:04:41 Influenza, split virus, quadrivalent, preservative 7 completed Bridget Vice null, [employer] 05/23/2024 13:51:19 Influenza, split virus, quadrivalent, preservative 8 completed Bridget Vice null, [employer] 05/23/2024 13:51:19 Influenza, split virus, quadrivalent, preservative 9 completed Bridget Vice null, [employer] 05/23/2024 13:51:19 Influenza, split virus, quadrivalent, preservative 0 completed Bridget Vice null, [employer] 05/23/2024 13:51:19 COVID-19, mRNA, LNP-S, PF, 100 mcg/0.5mL dose or 50 mcg/0.25mL dose 1 completed Bridget Vice null, [employer] 05/23/2024 13:51:19 COVID-19, mRNA, LNP-S, PF, 100 mcg/0.5mL dose or 50 mcg/0.25mL dose 1 completed Bridget Vice null, [employer] 05/23/2024 13:51:19 COVID-19, mRNA, LNP-S, PF, 100 mcg/0.5mL dose or 50 mcg/0.25mL dose 1 completed Bridget Vice null, [employer] 05/23/2024 13:51:19 Influenza, split virus, trivalent, preservative 4 completed Bridget Vice null, [employer] 05/23/2024 13:51:19 Hep A, adult 8 completed Bridget Vice null, [employer] 05/23/2024 13:51:19 Influenza, split virus, quadrivalent, PF 1 completed Bridget Vice null, [employer] 05/23/2024 13:51:19 Influenza, split virus, quadrivalent, PF 2 completed Bridget Vice null, [employer] 05/23/2024 13:51:19 Influenza, split virus, quadrivalent, PF 3 completed Bridget Vice null, [employer] 05/23/2024 13:51:19 Past Encounters Encounter ID Performer Location Encounter Start Date Encounter Closed Date Diagnosis/Indication Diagnosis SNOMED-CT Code Diagnosis ICD10 Code Diagnosis Note [id number] RITO Canseco [facility] [address] [place] [address] 02/20/2024 10:33:49 02/20/2024 12:12:01 Screening mammography 20085247 Z12.31 Neuropathy due to type 2 diabetes mellitus 0472514256 69492 E11.40 Diabetes mellitus 085568 09 E13.42 Administra tion of influenza vaccine 15512430 Z23 Palpitations 72857950 R0 0.2 Vitamin D deficiency 347 05040 E55.9 [id number] RITO Canseco [facility] [address] [place] [address] [place] [address] 05/23/2024 13:42:56 05/23/2024 14:30:12 Cough 43871472 R05.9 Sore throat 973797852 J0 2.9 Influenza B virus present 196897473 J10.1 Diabetes mellitus 601702 09 E13.42 Community acquired pneumonia 630133971 J18.9 Health Concerns Section Related Observation LastModified by Organization Detai ls LastModified Time None Recorded Concern Status LastModified by Organization Details LastModified Time None Recorded Advance Directives Directive N: Payers Insurance Date Sequence Insurance Name Policy Number Policy L[place] Covered Member ID [place] Member ID Guarantor Name 07/17/2024 1 [id number] [place] Linda Farias [id number] Linda Notes Date Note Type Note Provider Name and Address Organization Details Recorded Time 02/20/2024 text/html Patient presents to establish care. History of DM. Significantly improved control over the past year or so. She is compliant with meds. Has diabetic neuropathy. This has improved but is still bad at times. History of Vitamin D deficiency. She states that she sometimes has palpitations. Always feels tired. Feels like her heart rate is on the higher end and unsure if that is a problem. RITO Canseco [address] [place] [address], [phone], [facility] [employer] 02/20/2024 14:09:31 05/23/2024 text/html Sore throat, cou gh, sinus pain and pressure, headache X 7 days. No fever. Progressively getting worse instead of better. Cough productive. Body aches and chills. History of IDDM. RITO Canseco [address] [place], [address], [facility] [employer] 05/23/2024 15:57:14 OBGyn Episode No OBEpisode recorded.
--- OUTSIDE RECORDS SUMMARY | 2024-11-27 10:47 | XMS_ITS | Continuity of Care Document ---
Author Organization [place] - [employer] , [facility] Address [address] [place] [address] Assessment Encounter Date Assessment Date Assessment LastModified by Organization Details LastModified Time 11/11/2024 11/11/2024 Type 2 Diabetes Mellitus - The patient requests a blood work assessment for their A1C due to a routine check, and mentions having diabetic foot pain, indicating an ongoing management of diabetes. - Order A1C blood test and lipid panel - Advise patient to complete a random urine test for microalbumin - Suggest fasting for 6 hours before testing for accurate cholesterol levels - Guide patient to follow up with their primary care provider to review test results and discuss diabetic foot pain - Encourage the patient to contact [facility] to determine if an appointment is necessary or if walk-ins are allowed. [email or web address] Not available 11/11/2024 12:33:10 Plan of Treatment Reminders Order Date Submit Date Provider Last Modified By Organization Details Last Modified Time Details Appointments None recorded. Lab HbA1c (hemoglobi n A1c), blood 2024 025 [facility], [address] [place] [address], [id number], 5 12:23:08 CMP, serum or plasma 2024 025 [facility], [address] [place] [address], [id number], 5 12:23:12 lipid panel, serum 2024 025 [facility], [address] [place] [address], [id number], 5 12:23:11 CBC w/ auto diff 2024 025 [facility], [address] [place] [address], [id number], 12:23:10 unlisted lab - TSH reflex to t4f 2024 025 LUCILA [facility], [address] [place] [address], [place], [address], 12:23:10 microalbum in, urine 2024 025 [facility], [address] [place] [address], [place], [address], 12:23:11 Referral None recorded. Procedures None recorded. Surgeries None recorded. Imaging None recorded. Medication Orders None recorded. Patient TargetsNo targets recorded. Patient Instructions Encounter Date Encounter Id Patient Instructions Last Modified By Organization Details Last Modified Time 11/11/2024 [id number] type 2 diabetes: care instructions [email or web address] Not available 11/11/2024 12:22:54 Summary of Today 's Visit: During your visit today, we discussed monitoring your diabetes, specifically addressing the need to check your A1C levels to better manage your condition. You also expressed concerns regarding diabetic foot pain, for which we recommended seeing a academic associate. Due to our services' limitations, you'll need to book an appointment with a virtual primary care provider for this referral. Blood Work and Lab Instructions: You'll be getting your comprehensive blood work done, including A1C levels, cholesterol, and a urine test to check for microalbumin. We've identified a [facility] location at [address] [place] [address] in [place], [place], for your convenience. Please call ahead to confirm if an appointment is necessary. For accurate results, especially for the lipid panel, ensure you are fasting for at least six hours prior to your test. Additionally, be ready to provide a urine sample for proper kidney function analysis. Next Steps for Results and Follow-Up: Once your blood work is complete, schedule a follow-up appointment two days after your test to discuss your results with your primary care provider. If anything unusual appears in your lab results, rest assured that we will contact you promptly to address it before your scheduled visit. Remember to let us know if you experience increased discomfort or any new symptoms regarding your diabetic foot pain. Diabetic Foot Pain Management: To address your diabetic foot pain, please book an appointment with a virtual primary care provider through your benefits plan. They will help facilitate a referral to a academic associate for specialized care. Do not select the first available appointment to avoid being routed back to urgent care; instead, select a virtual primary care provider to ensure you receive the appropriate referral. [email or web address] Not available 11/11/2024 12:34:22 Reason for Referral None Reported. Problems Name Problem SNOMED Code Status Onset Date Resolution Date Notes Provider Name and Address Organization Details Recorded Time Diabetes mellitus 39264965 Active 2024 BABITA MeyersP 1 [facility] [address], [place], [address], [place] [facility] 5 09:03:41 Hyperlipide tiara [id number] Active 2024 MAI Meyers 1 [facility] [address], [place], [address], [place] [facility] 5 09:03:49 Neuropathy [id number] Active 2024 MAI Meyers 1 [facility] [address], [place], [address], [place] [facility] 5 09:04:13 Problem Notes None recorded. Medical Equipment None Reported. Allergies Allergen ID Allergen Name Allergen Category Reaction Reaction Severity Criticality Documentation Date Start Date Code Code System Note Provider Name and Address Organization Details Recorded Time 58917 metformin medicatio n Not available Not available Not available 03/26/2024 6809 RxNorm Not Available [facility] 4 13:43:18 Medications Name Sig Start Date Stop Date Status Note LastModified by Organization Details LastModified Time atorvastati n 40 mg tablet TAKE 1 TABLET BY MOUTH ONCE DAILY AT BEDTIME active Not Available Not Available No t Available bupropion HCl SR 150 mg tablet,12 hr sustained-r elease TAKE 1 TABLET BY MOUTH TWICE DAILY 11/20 completed Not Available Not Available Not Available azithromyci n 250 mg tablet TAKE 2 TABLETS BY MOUTH ON DAY 1, AND THEN TAKE 1 TABLET BY MOUTH ONCE A DAY ON DAY 2 THROUGH DAY 5 11/20 completed Not Available Not Available Not Available Lidocaine Viscous 2 % mucosal solution Gargle and spit for 30 seconds; use 10ml every 3 hrs as needed 05/21 completed Not Available Not Available Not Available benzonatate 200 mg capsule TAKE 1 CAPSULE BY MOUTH THREE TIMES DAILY 11/20 completed Not Available Not Available Not Available glipizide ER 10 mg tablet, extended release 24 hr TAKE 1 TABLET BY MOUTH ONCE DAILY active Not Available Not Available No t Available phenazopyri dine 200 mg tablet 05/18 completed Not Available Not Available Not Available prednisone 20 mg tablet TAKE 1 TABLET BY MOUTH TWICE DAILY DIRECTED FOR 5 DAYS 11/20 completed Not Available Not Available Not Available Wellbutrin SR 100 mg tablet, 12 hr sustained-r elease 10/17 completed Not Available Not Available Not Available amoxicillin 875 mg tablet TAKE 1 TABLET BY MOUTH EVERY 12 HOURS 11/20 completed Not Available Not Available Not Available benzonatate 100 mg capsule TAKE 1 CAPSULE BY MOUTH THREE TIMES DAILY NEEDED FOR COUGH 11/20 completed Not Available Not Available Not Available [...] 2 SPRAY(S) IN EACH NOSTRIL TWICE DAILY 11/20 completed Not Available Not Available Not Available methylpredn isolone 4 mg tablets in a dose pack TAKE BY MOUTH DIRECTED ON INSIDE OF PACKAGE 11/20 completed Not Available Not Available Not Available nitrofurant oin monohydrate /macrocryst als 100 mg capsule 05/18 completed Not Available Not Available Not Available duloxetine 30 mg capsule,del ayed release 10/17 completed Not Available Not Available Not Available pregabalin 75 mg capsule TAKE 1 CAPSULE BY MOUTH TWICE DAILY USE DIRECTED FOR DIABETIC NEUROPATH Y active Not Available Not Available No t Available atorvastati n 10mg daily 11/20 completed Not Available Not Available Not Available aspirin 81mg active Not Available Not Avail able Not Available lisinopril 5mg daily 07/09 /2025 completed Not Available Not Available Not Available glipizide 2.5mg daily 11/20 completed Not Available Not Available Not Available Vitamin D3 active Not Available Not Av ailable Not Available Wellbutrin XL 150mg two times a day 03/13 completed Not Available Not Available Not Available duloxetine 10/17 completed Not Available Not Available Not Available pregabalin 75mg two times a day 11/20 completed Not Available Not Available Not Available UNLISTED MEDICATION [Migrated medicatio n name:] Ozempic subcutane ous:: 01/15 completed Not Available Not Available Not Available UNLISTED MEDICATION [Migrated medicatio n name:] Mounjaro subcutane ous::7.5m g weekly 05/18 completed Not Available Not Available Not Available UNLISTED MEDICATION [Migrated medicatio n name:] Toujeo Max U-300 SoloStar subcutane ous:: 10/17 completed Not Available Not Available Not Available UNLISTED MEDICATION [Migrated medicatio n name:] Benzonata te 100 mg capsule:: 06/15 completed Not Available Not Available Not Available UNLISTED MEDICATION [Migrated medicatio n name:] buPROPion 12 hour extended release 150 mg/12 hours tablet, extended release:: 05/18 completed Not Available Not Available Not Available bupropion HBr 11/20 completed [NOT TAKIN G] Not Available Not Available Not Available Vitamin D2 active Not Available Not Av ailable Not Available guaifenesin ER 600 mg tablet, extended release 12 hr Take 1 tablet every 12 hours by oral route. 11/20 completed [NOT TAKIN G] Not Available Not Available Not Available Rexulti 10/17 completed Not Available Not Available Not Available Mounjaro 7.5 mg/0.5 mL subcutaneou s pen injector INJECT 1 PEN SUBCUTANE OUSLY ONCE A WEEK active Not Available Not Available No t Available Mounjaro 11/20 completed Not Available Not Available Not Available Vitals None Recorded Social History None recorded. Functional Status Question Answer Note LastModified by Organizat ion Details LastModified Time Do you use any illicit or recreational drugs? No Information not available 05/18/2024 Do you or have you ever used any other forms of tobacco or nicotine? No Information not available 05/18/2024 What is your level of alcohol consumption? None Information not available 05/18/2024 Mental Status None recorded. Family History Nothing Reported. Medical History No medical history recorded. Gynecological History Statement/Question Response Date of LMP 05/03/2024 Obstetrics History GPAL:G 0 P 0 0 0 0 Past Encounters Encounter ID Performer Location Encounter Start Date Encounter Closed Date Diagnosis/Indication Diagnosis SNOMED-CT Code Diagnosis ICD10 Code Diagnosis Note [id number] [facility] [address] [place] [address] 11/11/2024 12:17:30 11/14/2024 21:48:41 Type 2 diabetes mellitus 74668797 E11.9 Health Concerns Section Related Observation LastModified by Organization Detai ls LastModified Time None Recorded Concern Status LastModified by Organization Details LastModified Time None Recorded Payers Encounter Date Sequence Insurance Name Policy Number Policy [place] Covered Member ID [place] Member ID Guarantor Name 11/11/[address] [facility] [id number] Linda Jarrett [id number] Linda Jarrett 11/11/2024 2 *SELF PAY* [id number] Linda Farias [id number] Linda Farias Notes Date Note Type Note Provider Name and Address Organization Details Recorded Time 11/11/2024 text/html Patient name , location, and phone number confirmed. Limitations of telemedicine evaluations reviewed, all questions answered, and verbal consent obtained to treat via secure video telemedicine interaction. The patient consents to the use of [employer] scribe technology. Clinician attests that the clinician is physically located in the following state at the time of the visit: [place] location is: [place] CC: Follow up for diabetes management and diabetic foot pain HPI: The patient, a 44 y/o female, is presenting for a follow-up visit to have their A1C levels checked as part of their ongoing management for diabetes. They report experiencing diabetic foot pain. The patient has not mentioned any other exposures or symptoms linked to their foot pain. They did not describe any specific aggravating or alleviating factors related to their symptoms. MAI Valdes 1 [facility] [address], [place], [address], [facility] 11/14/2024 16:30:44 OBGyn Episode No OBEpisode recorded.
--- OUTSIDE RECORDS SUMMARY | 2024-11-27 10:47 | XMS_ITS | Data Portability ---
Author Organization [place] [facility] Address [address] [place] [address] Assessment Encounter Date Assessment Date Assessment LastModified by Organization Details LastModified Time 05/18/2024 05/18/2024 Viral sore throa t - characterized by sore throat symptoms without pus or swelling, likely viral in nature as assessed through visual examination. - I prescribed lidocaine for gargling to numb the throat, to be used for 30 seconds before spitting. - Recommended wehl-yzl-qtlabep Zyrtec, one tablet daily, to help with drainage. - Advised taking ibuprofen, two every six hours, even if pain decreases, to manage inflammation and help with viral symptom duration reduction. I advised the patient if their symptoms worsen or do not improve, to call us back or seek in person care. Counseled on red flag symptoms to indicate need for emergent follow up. Diagnosis and treatment plan discussed with the patient, and they voice agreement and understanding of the plan. [email or web address] Not available 05/18/2024 09:14:22 05/21/2024 05/21/2024 Differential Diagnosis: Acute bacterial rhinosinusitis vs viral URI A: Acute viral rhinosinusitis suspected due to short duration of symptoms, and clinical exam. Diagnosis and treatment plan discussed with patient using shared decision making. Patient voices understanding and agrees with treatment plan. P: NSAID/Tylenol use for pain relief OTC advised. Guaifenesin ER 600mg Take 1 tablet po 2 times daily as needed for congestion. Tessalon Perles 200mg Take 1 cap po every 8 hours as needed for cough #15. Use Azelastine 137mcg 1-2 sprays in each nostril 2 times daily. Use saline nasal spray 2-3 times daily. Use Neti Pot as needed for sinus rinses. Follow up with [facility] or your doctor in 5 days if not better. Go to the ER immediately if you develop fever higher than 103, severe headache, neck stiffness or any worsening symptoms. [email or web address] Not available 05/21/2024 14:52:44 11/11/2024 11/11/2024 Type 2 Diabetes Mellitus - [...] is necessary or if walk-ins are allowed. karon Not available 11/11/2024 12:33:10 11/20/2024 11/20/2024 Patient to kylie paz up soon to go over blood test results and further management. I asked her to check her BP and HR before the visit. Not available 11/20/2024 08:56:11 Plan of Treatment Reminders Order Date Submit Date Provider Last Modified By Organization Details Last Modified Time Details Appointments None recorded. Lab HbA1c (hemoglobi n A1c), blood 2024 025 [facility], [address] [place] [address], [id number], 12:23:08 CMP, serum or plasma 2024 025 [facility], [address] [place] [address], [address], 5 12:23:12 lipid panel, serum 2024 025 [facility], [address] [place] [address], [address], 5 12:23:11 CBC w/ auto diff 2024 025 [facility], [address] [place] [address], [address], 5 12:23:10 unlisted lab - TSH reflex to t4f 2024 025 [facility], [address] [facility], [place], [address], 5 12:23:10 microalbum in, urine 2024 025 [facility], [address] [facility], [place], [address], 5 12:23:11 Referral warehouse pricing and inventory clerk referral - 44 year old NIDDM patient with neuropathy having severe bilateral foot pain for 2 months. 2024 025 [facility], [address] [place] [address], [address], 5 09:05:59 Procedures None recorded. Surgeries None recorded. Imaging None recorded. Medication Orders azelastine 137 mcg (0.1 %) nasal spray 2024 025 [facility], [address] [place] [address], [address], 5 08:42:53 guaifenesi n ER 600 mg tablet, extended release 12 hr 2024 025 [facility], [address] [place] [address], [address], 5 08:43:23 benzonatat e 200 mg capsule 2024 025 [facility], [address] [place] [address], [address], 5 08:42:57 Lidocaine Viscous 2 % mucosal solution 2024 [facility], [address] [place] [address], [address], 5 14:53:19 Patient TargetsNo targets recorded. Patient Instructions Encounter Date Encounter Id Patient Instructions Last Modified By Organization Details Last Modified Time 05/18/2024 [id number] sore throat: car e instructions [email or web address] Not available 05/18/2024 09:07:35 Summary of Today's Visit: Today, we talked about your sore throat and occasional cough that started yesterday. You have no fever, body aches, chills, or significant cough. 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 Upon examination, your throat looked normal, indicating a likely viral infection. There was minor drainage, possibly causing a tickling sensation in your throat. Treatment Plan: To relieve your sore throat, I've prescribed lidocaine, which you'll need to gargle for 30 seconds and spit out. This numbing will help reduce your pain from an intensity of eight to one, although the effect may last up to four hours. It's crucial to take ibuprofen every six hours to manage inflammation and reduce the duration of the virus. Also, take Zyrtec once a day to help manage any throat drainage. Important Considerations: Please avoid skipping doses of ibuprofen, even if your sore throat feels better, to ensure the healing process continues effectively. Remember that you're allergic to metformin, but there's no concern with the current medication plan. 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 - Take ibuprofen every six hours for inflammation and soreness. - Take Zyrtec daily for drainage. - Monitor your symptoms, and if they worsen or you have other concerns, don't hesitate to contact us. Wishing you a speedy recovery! Take care and let us know if any further assistance is needed. [email or web address] Not available 05/18/2024 09:14:29 05/21/2024 [id number] Acute Sinusitis: Care Instructions [email or web address] Not available 05/21/2024 14:55:10 11/11/2024 [id number] type 2 diabetes: care instructions [email or web address] Not available 11/11/2024 12:22:54 Summary of Today's Visit: During your visit today, we discussed monitoring your diabetes, specifically addressing the need to check your A1C levels to better manage your condition. You also expressed concerns regarding diabetic foot pain, for which we recommended seeing a warehouse pricing and inventory clerk. Due to our services' limitations, you'll need to book an appointment with a virtual primary care provider for this referral. Blood Work and Lab Instructions: You'll be getting your comprehensive blood work done, including A1C levels, cholesterol, and a urine test to check for microalbumin. We've identified a [facility] location at [address] [place], [place] [address]ling [facility] in [place], [place], for your convenience. Please call ahead [...] will help facilitate a referral to a warehouse pricing and inventory clerk for specialized care. Do not select the first available appointment to avoid being routed back to urgent care; instead, select a virtual primary care provider to ensure you receive the appropriate referral. [email or web address] Not available 11/11/2024 12:34:22 11/20/2024 [id number] Summary of Today's Visit: Today, we discussed your ongoing foot pain due to neuropathy, as well as some additional, differently characterized foot pain you've been experiencing for the past two months. You mentioned that this new pain intensifies during your drive home or when you apply pressure to certain areas of your foot, although no visible deformity or swelling is present. Diabetes Management: You have been managing diabetes for about 15 years and are currently taking several medications, including glipizide and Mounjaro. Your last A1C was slightly over 7. We discussed aiming to reduce or discontinue glipizide eventually due to its potential to cause weight gain, and instead optimizing your Mounjaro dosage. Foot Pain and Argon Tester Referral: We plan to arrange a referral for you to see a warehouse pricing and inventory clerk to address the specific foot pain that appears unrelated to your neuropathy. Because of the intensity and persistence of the pain, we will benedict this as an urgent referral to expedite your appointment. Lab Tests and Blood Pressure Monitoring: Please complete the pending lab tests after fasting for at least 10 hours, preferably tomorrow, to assess your cholesterol and other health markers. Additionally, check your blood pressure at home and provide those readings during your next appointment. Follow-Up Actions: - Complete your fasting lab tests tomorrow or as soon as possible. - Expect a referral to see a warehouse pricing and inventory clerk urgently for your foot pain. - Monitor your blood pressure and prepare to discuss the readings at your follow-up. - Schedule a follow-up appointment in three weeks, ensuring lab tests are done 3-5 days prior. - Call us if there are any changes or worsening in your symptoms. Not available 11/20/2024 08:51:40 Reason for Referral Argon Tester Referral for Pain in both feet 44 year old NIDDM patient with neuropathy having severe bilateral foot pain for 2 months. Referring Physician: Paula Nickerson, Skates Operator, Encounter Date: 11/20/2024 Problems Name Problem SNOMED Code Status Onset Date Resolution Date Notes Provider Name and Address Organization Details Recorded Time Diabetes mellitus 87917688 Active 2024 Godfrey An DIAMOND SAWER 1 [facility] [address], [place], [address], [place] [facility] 5 09:03:41 Hyperlipide tiara 88318952 Active 2024 Godfrey An DIAMOND SAWER 1 [facility] [address], [place], [address], [place] [facility] 5 09:03:49 Neuropathy 203745842 Active 2024 MAI Meyers 1 [facility] [address], [place], [address], [place] [facility] 5 09:04:13 Problem Notes None recorded. Medical Equipment None Reported. Allergies Allergen ID Allergen Name Allergen Category Reaction Reaction Severity Criticality Documentation Date Start Date Code Code System Note Provider Name and Address Organization Details Recorded Time 23948 metformin medicatio n Not available Not available Not available 03/26/2024 6809 RxNorm Not Available [facility] [place] 13:43:18 Medications Name Sig Start Date Stop [...] Avail able Not Available lisinopril 5mg daily 11/20 completed Not Available Not Available [...] Available Not Available Vitals Date Recorded Body weight Body mass index (BMI) Body height Provider Name and Address Organization Details Last Updated DateTime 11/20/2024 10511.07 g 27.7 kg/m2 168.91 cm [facility], DO 1 [facility] [address], [place], [address], [place] [facility] [place] 11/20/2024 08:44:32 Social History None recorded. Functional Status Question [...] SNOMED-CT Code Diagnosis ICD10 Code Diagnosis Note [id number] Karime An [address] [address] 05/18/2024 08:58:27 05/18/2024 21:07:53 Acute pharyngitis 184716484 J02.9 [id number] Yanelis Gaston [address] [address] 05/21/2024 14:46:33 05/21/2024 20:54:35 Nasal congestion 73490989 R09.81 Acute sinusitis 96459758 J01.90 [id number] Alexa Piedra [address] [address] 11/11/2024 12:17:30 11/14/2024 21:48:41 Type 2 diabetes mellitus 66808376 E11.9 [id number] Dawnluis Krishan [facility] [place] [address] [place] [address] 11/20/2024 08:28:59 11/20/2024 09:00:06 Pain in both feet 7095291570 1507197 M79.671 M79.672 Bilateral foot pain in a patient with diabetic neuropathy - The patient reports significan t foot pain attributed to neuropathy , with a history of diabetes for 15 years. - I referred the patient to a warehouse pricing and inventory clerk for further evaluation , given the prolonged foot pain and potential nerve damage. Neuropathy due to type 2 diabetes mellitus [id number] 51075 E11.40 - Encouraged to perform fasting lab tests for cholestero l and A1C soon, with a follow-up visit planned in three weeks after testing.- Discussed future adjustment s to diabetes medication , with a goal to discontinu e glipizide and potentiall y increase Mounjaro. Health Concerns Section Related Observation LastModified by Organization Detai ls LastModified Time None Recorded Concern Status LastModified by Organization Details LastModified Time None Recorded Advance Directives Directive None Recorded Payers Insurance Date Sequence Insurance Name Policy Number Policy Lima Covered Member ID Lima Member ID Guarantor Name 03/31/2024 1 *SELF PAY* Linda Farias [place] LUE Linda Farias 03/26/2024 1 *SELF PAY* Jean-Paul Farias 11/11/2024 2 *SELF PAY* [id number] Linda Farias [id number] Linda Farias 08/05/2024 1 [facility] [id number] Linda Farias [id number] Linda Farias 08/05/2024 [facility] [id number] Linda Farias [id number] Linda Farias Notes Date Note Type Note Provider Name and Address Organization Details Recorded Time 05/18/2024 text/html This virtual encounter was conducted utilizing a synchronous video platform. Patient name/age/location were verified at the start of the visit. The patient/guardian provided consent for this video encounter prior to starting. The patient/guardian understands the limitations of not being physically examined in person and that we may not be able to address all issues via video. I was located in my home office in the state of [place] and the patient was located in the state of [place]. The patient consents to the use of AI Scribe CC: Sore throat and mild cough HPI: Linda Farias, a 43-year-old patient, presents with a primary complaint of a sore throat, reported to have started yesterday. The patient describes the throat pain as significant, affecting their ability to swallow, and rates the severity as an eight on a scale of one to ten. The patient mentions an intermittent, mild cough which occurs occasionally and suspects it is related to throat irritation. The patient has not experienced a stuffy nose, fever, body aches, chills, or headache. 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 The patient denies having significant nasal congestion. Godfrey An, DIAMOND SAWER [address], [address], [facility] 05/18/2024 16:15:47 05/21/2024 text/html Call connected, patient greeted. Patient name, , telephone number and location verified verbally with the patient. Telemedicine limitations reviewed and verbal consent obtained to treat. Clinician attests they are physically located in the following state at the time of visit: [place]. CC: Cough and Nasal congestion History of Present Illness:Patient is a 43 yo female with symptoms for nasal congestion, throat pain, cough, and facial pressure. Patient reports has had symptoms for 3 days.No shortness of breath or difficulty breathing. Has been tolerating po.Patient exposed to sick contacts. Has tried Tylenol/Motrin, Mucinex, and Sudafed.Mónica-Negissac Abel seen 2 days ago for throat pain and prescribed Viscous Lidocaine. Yanelis Gaston, DIAMOND SAWER 1 [facility] [address] [place] [address], [address], [facility] 05/21/2024 14:56:19 11/11/2024 text/html Patient name , location, and phone number confirmed. Limitations of telemedicine evaluations reviewed, all questions answered, and verbal consent obtained to treat via secure video telemedicine interaction. The patient consents to the use of AI scribe technology. Clinician attests that the clinician is physically located in the following state at the time of the visit: [place]: [place] CC: Follow up for diabetes management and [...] or alleviating factors related to their symptoms. Alexa Piedra, DIAMOND SAWER 1 [facility] [address], [place], [address], [facility] 11/14/2024 16:30:44 11/20/2024 text/html Call connected, patient greeted. Patient name, , telephone number and location verified verbally with the patient. Telemedicine limitations reviewed, answered all questions the patient had about the telehealth interaction, and verbal consent obtained to treat. Clinician attests to being physically located in the following state at the time of visit: [place] Previous visits and labs reviewed, if available.Patient also consented to the use of AI technology.Patient is calling from work in [place]. CC: Significant foot pain HPI: This is a 44 year old [facility] patient I am meeting for the first time. The patient presents with significant foot pain, with an onset of approximately two months ago. The etiology is multifactorial, with both feet affected by varying issues. The patient has a history of diabetes diagnosed approximately 15 years ago, with nerve damage noted by a warehouse pricing and inventory clerk about seven to eight years ago. She is taking Lyrica BID. Despite differing localization of discomfort, the patient reports no visible deformity or swelling, and the skin appears normal. The character of the pain during the day is different from the neuropathic burning and stabbing sensations typically experienced; however, substantial pain occurs while driving home, rated at six out of ten on the pain scale at its worst. The patient has attempted to alleviate symptoms with ergonomic modifications like changing seating positions and using seat rests in their vehicle, but these measures have not fully mitigated the discomfort. Current medications include glipizide, Mounjaro, pregabalin, and lisinopril among others, with varying adherence and effectiveness regarding diabetes management rather than neuropathic pain alleviation. The patient's HbA1c is noted to be just above seven, with medications aimed at optimizing glycemic control. The patient is premenopausal with irregular menstrual cycles. She saw an urgent care provider at a few days ago and received an order for the blood test. She plans to get it done soon. Paula Nickerson, DO 1 [facility] [address], [place], [address], [facility] 11/20/2024 08:56:45 OBGyn Episode No OBEpisode recorded.
--- OUTSIDE RECORDS SUMMARY | 2024-11-27 10:47 | XMS_ITS | Clinical Summary ---
Author Organization Healthcare Address [address] [place] [address] Care Team Providers Care Integrated Circuit Fabricator Name Role Phone Cory Whelan FLIGHT OPERATIONS DISPATCH CLERK Primary Care Provider [phone] Allergies No known active allergies Medications DULoxetine (Cymbalta) [address] capsule Take 60 mg by mouth 1 (one) time each day. Do not crush or chew. Active EQ Aspirin Adult Low Dose 81 MG EC tablet Take 81 mg by mouth 1 (one) time each day. 1 Active Toujeo Max SoloStar 300 UNIT/ML injection INJECT 80 UNITS SUBCUTANEOUSLY ONCE DAILY 2 Active lisinopril 5 MG tablet Take 5 mg by mouth 1 (one) time each day. 1 Active Ozempic, 0.25 or 0.5 MG/DOSE, 2 MG/1.5ML solution pen-injector inj. pen INJECT 0.25MG ONCE A WEEK SUBCUTANEOUSLY FOR 4 DOSES, THEN INCREASE TO 0.5MG WEEKLY 2 Active metFORMIN (Glucophage) 500 MG tablet Take 1,000 mg by mouth 2 (two) times a day. 2 Active Active Problems Problem Noted Date Diagnosed Date Microalbuminuria 06/28/2021 Diabetes mellitus type 2 06/28/2021 Overview (02/14/2022): Regulatory Update February 2022 Essential hypertension 06/28/2021 Family History Medical History Relation Name Comments Diabetes Father Diabetes Mother Relation Name Status Comments Father Mother Social History Tobacco Use Types Packs/Day Years Used Date Smoking Tobacco: Former Passive Smoke Exposure: Past Smokeless Tobacco: Never Tobacco Cessation:Counseling Given: Not Answered Alcohol Use Standard Drinks/Week Comments Not Currently 0 (1 standard drink = 0.6 oz pur e alcohol) Comments Unknown Sex and Gender Information Value Date Recorded Sex Assigned at Not on file Legal Sex Female 8:17 PM EDT Gender Identity Not on file Sexual Orientation Not on file Last Filed Vital Signs Vital Sign Reading Time Taken Comments Blood Pressure 139/78 06/28/2021 1:57 PM EST Pulse 90 06/28/2021 1:57 PM EST Temperature - - Respiratory Rate - - Oxygen Saturation - - Inhaled Oxygen Concentration - - Weight 80.7 kg (178 lb) 06/28/2021 1:57 PM EST Height 167.6 cm (5' 6 ) 06/28/2021 1:57 PM EST Body Mass Index 28.73 06/28/2021 1:57 PM EST Plan of Treatment Health Maintenance Due Date Last Done Comments [facility]-Depression Screening 1979 [facility]-/Child/Adol SDOH Screenings 1979 [facility]-Varicella Vaccines (1 of 2 - 13+ 2-dose series) 11/06/1992 HPV Vaccines (1 - 3-dose series) 11/06/1994 [facility]- SDOH Screenings 11/06/1997 [facility]-Adult SDOH Screenings 11/06/1997 [facility]-DTaP,Tdap,and Td Vaccines (1 - Tdap) 11/06/1998 [facility]-Hepatitis B Vaccines (1 of 3 - 19+ 3-dose series) 11/06/1998 [facility]-Pap Smear 11/06/2000 [facility]-Cervical Cancer Screening 11/06/2009 [facility]-HPV/Cotest 11/06/2009 [facility]-PCXQO-70 Vaccine ( season) 2024 05/10/2021, 08/26/2020, 07/29/2020 CT Colonography 11/06/2024 Colonoscopy 11/06/2024 FIT-DNA 11/06/2024 FIT 11/06/2024 FOBT 11/06/2024 Sigmoidoscopy 11/06/2024 [facility]-Colorectal Cancer Screening 11/06/2024 [facility]-Influenza Vaccine (#1) 01/13/202503/10, 05/14/2020, 04/18/2019, Additional history exists [facility]-Zoster Vaccines (1 of 2) 11/06/2029 [facility]-Hepatitis A Vaccines Aged Out 03/14/2018 No longer eligible based on patient's age to complete this topic [facility]-HIB Vaccines Aged Out No longer e ligible based on patient's age to complete this topic [facility]-IPV Vaccines Aged Out No longer e ligible based on patient's age to complete this topic [facility]-Pneumococcal Vaccine: Pediatrics (0 to 5 Years) and At-Risk Patients (6 to 49 Years) Aged Out No longer eligible based on patient's age to complete this topic [facility]-Rotavirus Vaccines Aged Out No lo nger eligible based on patient's age to complete this topic Insurance [employer] Care Teams Integrated Circuit Fabricator Relationship Specialty Start Date End Date Cory Whelan APRN [address] [facility] [place] [id number] PCP - General 06/28/21
--- OUTSIDE RECORDS SUMMARY | 2024-11-27 10:47 | XMS_ITS | Continuity of Care Document ---
Author Organization [place] [facility] [place] Address [address] [place] [address] Assessment Encounter Date Assessment Date Assessment LastModified by Organization Details LastModified Time 11/20/2024 11/20/2024 Patient to follow up soon to go over blood test results and further management. I asked her to check her BP and HR before the visit. Not available 11/20/2024 08:56:11 Plan of Treatment Reminders Order Date Submit Date Provider Last Modified By Organization Details Last Modified Time Details Appointments None recorded. Lab None recorded. Referral ring maker referral - 44 year old NIDDM patient with neuropathy having severe bilateral foot pain for 2 months. 2024 025 AGAPITO Bolivar DPM, [address], [place], [address], 09:05:59 Procedures None recorded. Surgeries None recorded. Imaging None recorded. Medication Orders None recorded. Patient TargetsNo targets recorded. Patient Instructions Encounter Date Encounter Id Patient Instructions Last Modified By Organization Details Last Modified Time 11/20/2024 [id number] Summary of Today 's Visit: Today, we discussed your ongoing foot [...] optimizing your Mounjaro dosage. Foot Pain and Child Care Sitter Referral: We plan to arrange a referral for you to see a ring maker to address the specific foot pain that [...] - Expect a referral to see a ring maker urgently for your foot pain. - Monitor your blood pressure and prepare to discuss the readings at your follow-up. - Schedule a follow-up appointment in three weeks, ensuring lab tests are done 3-5 days prior. - Call us if there are any changes or worsening in your symptoms. Not available 11/20/2024 08:51:40 Reason for Referral Child Care Sitter Referral for Pain in both feet 44 year old NIDDM patient with neuropathy having severe bilateral foot pain for 2 months. Referring Physician: Paula Nickerson, Clinical Pharmacologist, Encounter Date: 11/20/2024 Problems Name Problem SNOMED Code Status Onset Date Resolution Date Notes Provider Name and Address Organization Details Recorded Time Diabetes mellitus 91000411 Active 2024 MAI Meyers 1 [facility] [address] [place] [address], [id number], [place] [facility] 5 09:03:41 Hyperlipide tiara 93804528 Active 2024 MAI Meyers 1 [facility] [address] [place] [address], [phone], [place] [facility] 5 09:03:49 Neuropathy 037922984 Active 2024 MAI Meyers 1 [facility] [address] [place] [address], [phone], [place] [facility] 5 09:04:13 Problem Notes None recorded. Medical Equipment None Reported. Allergies Allergen ID Allergen Name Allergen Category Reaction Reaction Severity Criticality Documentation Date Start Date Code Code System Note Provider Name and Address Organization Details Recorded Time 71164 metformin medicatio n Not available Not available [...] hours by oral route. 11/20 completed [NOT TAKLUC G] Not Available Not Available Not Available [...] Address Organization Details Last Updated DateTime 11/20/2024 06809.07 g 27.7 kg/m2 168.91 cm Paula Nickerson DO [address] [place] [address] [address] [place], [address], [place] - [facility] [place] [facility] 11/20/2024 08:44:32 Social History None recorded. Functional [...] SNOMED-CT Code Diagnosis ICD10 Code Diagnosis Note [id number] MAI [facility] [place] [address] [place] [address] 11/11/2024 12:17:30 11/14/2024 21:48:41 Type 2 diabetes mellitus 68720415 E11.9 [id number] Paula Nickerson DO [facility] [place] [address] [place] [address] 11/20/2024 08:28:59 11/20/2024 09:00:06 Pain in both feet 1668796747 [id number] M79.671 M79.672 Bilateral foot pain in a patient with diabetic neuropathy - The patient reports significan t foot pain attributed to neuropathy , with a history of diabetes for 15 years. - I referred the patient to a ring maker for further evaluation , given the prolonged foot pain and potential nerve damage. Neuropathy due to type 2 diabetes mellitus [id number] 26951 E11.40 - Encouraged to perform fasting lab [...] Member ID [place] Member ID Guarantor Name 11/20/2024 1 [facility] [id number] Linda Farias [id number] Linda Farias 11/20/2024 2 *SELF PAY* [id number] Linda Farias [id number] Linda Farias Notes Date Note Type Note Provider Name and Address Organization Details Recorded Time 11/20/2024 text/html Call connected, patient greeted. Patient name, , telephone number and location verified verbally with the patient. Telemedicine limitations reviewed, answered all questions the patient had about the telehealth interaction, and verbal consent obtained to treat. Clinician attests to being physically located in the following state at the time of visit: [place] Previous visits and labs reviewed, if available.Patient also consented to the use of AI technology.Patient is calling from work in [place]. CC: Significant foot pain HPI: This is a 44 year old [facility] patient I am meeting for the first time. The patient presents with significant foot pain, with an onset of approximately two months ago. The etiology is multifactorial, with both feet affected by varying issues. The patient has a history of diabetes diagnosed approximately 15 years ago, with nerve damage noted by a ring maker about seven to eight years ago. She [...] it done soon. Paula Nickerson, DO 1 [facility] [address], [place], [address], [facility] 11/20/2024 08:56:45 OBGyn Episode No OBEpisode recorded.
== END 2024-11-27 23:59 | disposition home or self-care (01) ==
LOC: RAD 10:44
PROVIDERS: PCP Physician Assistant; Visit Provider Podiatrist
DX: M79.671 Pain in right foot (principal); M79.672 Pain in left foot
CPT/HCPCS: 73630